=== PATIENT | female | born 1940 | race Caucasian/White ===

== ENCOUNTER → 2016-12-03 | Outpatient (CLI) | payer MEDICARE, BC ==
--- NOTE | 2016-12-03 15:56 | CT ---
EXAMINATION TYPE: CT abdomen pelvis wo con DATE OF EXAM: 12/03/2016 COMPARISON: NONE HISTORY: Patient complains of bilateral flank pain and microscopic hematuria. Patient has no prior h istory of renal stones. CT DLP: 1189.3 mGycm Automated exposure control for dose reduction was used. TECHNIQUE: Helical acquisition of images was performed from the lung bases through the pelvis. FINDINGS: LUNG BASES: Heart is enlarged. Cardiac leads are seen.. LIVER/GB: Liver and gallbladder limited by noncontrast technique. Gallbladder not well seen. PANCREAS: No significant abnormality is seen. SPLEEN: No significant abnormality is seen. ADRENALS: No significant abnormality is seen. KIDNEYS: No significant abnormality is seen. URINARY BLADDER: There is slight thickening at the level of the UVJ on axial image 131 and 132.. PELVIC ADENOPATHY: None visualized. OSSEOUS STRUCTURES: Hypertrophic and degenerative changes spine seen with grade 1 anterolisthesis L4 on L5. Previous surgery noted. Scoliosis noted. Arthropathy of the hips noted. BOWEL: Diverticulosis of the colon noted. Small hiatal hernia noted. OTHER: Aorta of normal caliber. IMPRESSION: NO EVIDENCE OF RENAL STONE OR HYDRONEPHROSIS. THERE IS SLIGHT INCREASED SOFT TISSUE DENSITY AT THE [facility] UVJ. THIS COULD BE CONSULTED WITH UROLOGY FOR ASSESSMENT OF THE DISTAL URETER, CORRELATE CLINICAL LY.
== END ==
LOC: RADCTMAIN 15:18
PROVIDERS: ATTEND Family Medicine
DX: N28.89 Other specified disorders of kidney and ureter (principal)
CPT/HCPCS: 74176

== ENCOUNTER → 2019-03-29 | Outpatient (CLI) | payer MEDICARE, BC ==
--- NOTE | 2019-03-30 07:26 | XR ---
EXAMINATION TYPE: XR chest 2V DATE OF EXAM: 03/29/2019 COMPARISON: None INDICATION: Left-sided lung pain TECHNIQUE: Frontal and lateral views of the chest are obtained. FINDINGS: The heart size is normal. The pulmonary vasculature is normal. The lungs are clear. Pacemaker overlies left chest. No pneumothorax is evident. IMPRESSION: 1. No acute pulmonary process.
== END | disposition home or self-care (01) ==
LOC: RADXRMAIN 15:46
PROVIDERS: ATTEND Physician Assistant
DX: J41.1 Mucopurulent chronic bronchitis (principal)
CPT/HCPCS: 71046

== ENCOUNTER → 2020-02-27 | Outpatient (CLI) | payer MEDICARE, BC | END | disposition home or self-care (01) | LOC: LABWHC1 12:08 | PROVIDERS: ATTEND Nurse Practitioner Family | DX: Z20.828 Contact with and (suspected) exposure to other viral communicable diseases (principal) | CPT/HCPCS: U0003; C9803 ==

== ENCOUNTER → 2020-03-19 | Outpatient (CLI) | payer MEDICARE, BC ==
[2020-03-19 10:52] VITALS: BP 154/83; PULSE 63; RESP 18; TEMP 98.9
--- NOTE | 2020-03-19 11:21 | P.PAINCN ---
History of Present Illness - Reason for Consult Consult date: 03/19/20 - History of Present Illness This is initial consultation visit for this 80 years old female with a chronic history of severe low back pain, started 5 years ago, patient reported that she had lumbar laminectomy and fusion surgery done in 2008 and she did fairly well until 5 years ago, she started having severe low back pain which is increased with any activity and the pain is radiated to the buttock area, and radiated to the posterior lateral aspect of the lower extremity bilaterally, the pain interfering with the quality of life, she is not able to ambulate on her own and she is using a walker to ambulate, she feel some weakness in her lower extremity bilaterally, she denies any fever or night sweats she denies any change in the bowel movement or urination. Past Medical History Past Medical History: Atrial Fibrillation, Eye Disorder, GERD/Reflux, Hypertension Additional Past Medical History / Comment(s): blind lt eye,thinks has sleep apnea,hiatal hernia,urinary infections, hx ventricular tachycardia,spinal stenosis,spondylosis,rt eye retinal tear-laser repair in office. History of Any Multi-Drug Resistant Organisms: None Reported Past Surgical History: Appendectomy, Back Surgery, Cardiac Ablation, Cholecystectomy, Heart Catheterization, Hysterectomy, Orthopedic Surgery, Pacemaker, Tonsillectomy Additional Past Surgical History / Comment(s): [employer] pacemaker,left arthroscopy,rt leg swelling drained,lower spine surgery laminectomy and fusion,lt eye x2,2 medial branch blocks in Jan & Feb 2020 Past Anesthesia/Blood Transfusion Reactions: No Reported Reaction Type of Cardiac Device: Permanent Pacemaker Device Placement Date:: 2011 Smoking Status: Never smoker - Past Family History Mother Family Medical History: Cancer Brother(s) Family Medical History: Cancer Sister(s) Family Medical History: Cancer Medications and Allergies Home Medications Medication Instructions Recorded Confirmed Type Meclizine [Antivert] 25 mg PO Q4HR PRN 03/21/14 03/19/20 History Metoprolol Tartrate [Lopressor] 50 mg PO BID 03/21/14 03/19/20 History Nitroglycerin Sl Tabs [Nitrostat] 0.4 mg SUBLINGUAL DIRECTED PRN 03/21/14 03/19/20 History Warfarin [Coumadin] 5 mg PO MOTUWETHFRSA 03/21/14 03/19/20 History Acetaminophen [Tylenol] 500 mg PO Q4-6H PRN 03/17/20 03/19/20 History Ascorbic Acid [Vitamin C] 1,000 mg PO DAILY 03/17/20 03/19/20 History Cetirizine HCl [Zyrtec] 10 mg PO DAILY 03/17/20 03/19/20 History Cholecalciferol [Vitamin D3 (25 5,000 unit PO DAILY 03/17/20 03/19/20 History Mcg = 1000 Iu)] Famotidine [Pepcid] 10 mg PO QID PRN 03/17/20 03/19/20 History Flecainide [Tambocor] 50 mg PO Q12HR 03/17/20 03/19/20 History Levothyroxine Sodium [Synthroid] 50 mcg PO DAILY 03/17/20 03/19/20 History Magnesium Unk Dose 1 tab PO DAILY 03/17/20 03/19/20 History Greenleaf-3 Fatty Acids [Greenleaf-3] 1,000 mg PO DAILY 03/17/20 03/19/20 History Potassium Gluconate 99 mg PO DAILY 03/17/20 03/19/20 History Progesterone, Micronized [Crinone] 1.125 gm VG HS 03/17/20 03/19/20 History Warfarin [Coumadin] 2.5 mg PO SPARKS 03/17/20 03/19/20 History Zinc Gluconate [Zinc] 30 mg PO DAILY 03/17/20 03/19/20 History Allergies Allergy/AdvReac Type Severity Reaction Status Date / Time acetaminophen [From Lortab] Allergy Severe Itching Verified 03/19/20 11:12 clonidine Allergy Severe extreme Verified 03/19/20 11:12 dizziness & faint doxycycline Allergy Severe Rash/Hives Verified 03/19/20 11:12 erythromycin base Allergy Severe nausea,diarrhea,vertigo,stomach Verified 03/19/20 11:12 problems hydrocodone bitartrate Allergy Severe Itching Verified 03/19/20 11:12 [From Lortab] indomethacin [From Indocin] Allergy Severe Hallucinati Verified 03/19/20 11:12 ons indomethacin sodium Allergy Severe Hallucinati Verified 03/19/20 11:12 [From Indocin] ons levofloxacin [From Levaquin] Allergy Severe Rash & Verified 03/19/20 11:12 joint pain morphine Allergy Severe Nausea & Verified 03/19/20 11:12 Vomiting naproxen [From Naprosyn] Allergy Severe Severe Verified 03/19/20 11:12 Headache sulindac [From Clinoril] Allergy Severe Nausea Verified 03/19/20 11:12 tolmetin sodium Allergy Severe Nausea Verified 03/19/20 11:12 [From Tolectin] bacitracin [From Cortisporin] Allergy Itching Verified 03/19/20 11:12 bacitracin zinc Allergy Itching Verified 03/19/20 11:12 [From Cortisporin] bupivacaine HCl Allergy joint pain Verified 03/19/20 11:12 [From Marcaine] cephalexin monohydrate Allergy Rash and Verified 03/19/20 11:12 [From Keflex] stomach problems ciprofloxacin Allergy Rash/Hives Verified 03/19/20 11:12 clarithromycin Allergy Diarrhea Verified 03/19/20 11:12 codeine Allergy Nausea Verified 03/19/20 11:12 dexamethasone Allergy Severe Verified 03/19/20 11:12 headache & drugged feeling dexamethasone sod phosphate Allergy Severe Verified 03/19/20 11:12 [From Decadron] headache & drugged feeling esomeprazole [From Nexium] Allergy Unknown Verified 03/19/20 11:12 estradiol Allergy Painful Verified 03/19/20 11:12 arms, spine & breasts hydrocortisone Allergy Itching Verified 03/19/20 11:12 [From Cortisporin] ibuprofen [From Motrin] Allergy Rapid Verified 03/19/20 11:12 Heart Rate liotrix [From Thyrolar-1/4] Allergy Rapid Verified 03/19/20 11:12 Heart Rate, sob,severe back pain lisinopril Allergy dizziness Verified 03/19/20 11:12 metoclopramide HCl Allergy Nausea-Stomach Verified 03/19/20 11:12 [From Reglan] problems neomycin [From Cortisporin] Allergy Itching Verified 03/19/20 11:12 neomycin sulfate Allergy Itching Verified 03/19/20 11:12 [From Cortisporin] omeprazole Allergy Swelling Verified 03/19/20 11:12 oxycodone HCl [From Percocet] Allergy sob,dizzy Verified 03/19/20 11:12 & drugged feeling polymyxin B Allergy Itching & Verified 03/19/20 11:12 swelling of the eyes polymyxin B sulfate Allergy Itching Verified 03/19/20 11:12 [From Cortisporin] pregabalin [From Lyrica] Allergy Weight Verified 03/19/20 11:12 gain & blurry vision propafenone Allergy Itching Verified 03/19/20 11:12 spironolactone Allergy Internal Verified 03/19/20 11:12 [From Aldactone] itching ,extreme dizziness sulfamethoxazole Allergy Severe Verified 03/19/20 11:12 [From Bactrim] joint pain tetracycline Allergy Pt told by Verified 03/19/20 11:12 Pharmacist never to take r/t other allergies tramadol HCl [From Ultram] Allergy Nausea & Verified 03/19/20 11:12 SOB trimethoprim [From Bactrim] Allergy Severe Verified 03/19/20 11:12 joint pain isosorbide AdvReac Severe severe Verified 03/19/20 11:12 headache,dizziness & diarrhea gabapentin [From Neurontin] AdvReac "off Verified 03/19/20 11:12 balance" Hexadrol Allergy Severe Uncoded 03/19/20 11:12 headache & drugged feeling shell fish Allergy Joint and Uncoded 03/19/20 11:12 body pain spectro-abel Allergy Frozen Uncoded 03/19/20 11:12 face for several days after Physical Exam Vitals: Vital Signs Temp Pulse Resp BP Pulse Ox 03/19/20 10:37 98.9 F 63 18 154/83 63 L Physical Examinations : -Constitutiona : Cooperative , not in acute distress . -HEENT : nech : supple , no Lymphadenopathy , normal thyroid size . : eyes : no ptosis , no icterus, no photophobia . - neurologic : Cranial nerve II to XII intact , no focal neurological deffecit . -psychatric : alert , oriented X 3 , appropriate affect , intact judgment and insight . -Lymphatic : no Lymphadenopathy . - musculoskeltal : Lumber spine moter stegnth lower extremities ,thigh and legs 5/5 Right side , 5/5 Left side deep tendon reflexes : normal Knee Jerk , normal ankle Jerk lumber facet Loading Test =positive Right , positive Left Range of motion of the lumbar spine Flexion 30 degrees, extension 10 degrees strait leg raising test = positive at 30 degree Fabere test= positive Right , and positive LT . Sever tenderness over the Sacroiliac joint on the Right , and Left sides Gaenslen test= positive right ,and positive left . Seated flexion test= positive right ,and positive Left . 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 2-lumbar spondylosis with lumbar facet arthropathy without myelopathy. 3-bilateral sacroiliitis. Patient could benefit from caudal epidural steroid injection with lysis of epidural adhesions under fluoroscopy guidance. If she continued to have pain after that then we will consider doing diagnostic medial branch block lumbar area. After holding Coumadin before the procedure well and we have to check PT/INR before the procedure, we will get approval from prescribing physician to hold Coumadin Time with Patient: Greater than 30 PQRS Measure Charge Sheet Measure #130: Documentation of Current Meds in Medical Chart: Patient's medications documented in chart Measure #226: Tobacco Use: Screen & Cessation Intervention: Pt not a tobacco user Measure #111: Pneumonia Vaccination: Pneumococcal vaccine administered or previously received Measure #47: Advance Care Plan: Advance care planning discussed & documented, pt chose/unable to give Measure #412: Opioid Treatment Agreement: No documentation of signed opioid treatment agreement Measure #408: Opioid Therapy Follow-up Evaluation: Patient had NO f/u eval minimum every 3 months during opioid therapy Measure #317: Preventitive Care & Scrn High Bld Press & F/U: Pre-hypertensive or hypertensive BP documented, pt will f/u with PCP Measure #128: Body Mass Index (BMI) Screening & Follow-up: BMI documented ABOVE normal parameters - f/u documented Measure #131: Pain Assessment & Follow-up: Pain positive & plan documented, Follow-up scheduled Measure #431: Unhealthy Alcohol Use Preventative Care & Scrn: Patient not identified as an unhealthy alcohol user PQRS Narrative: Blood Pressure 154/83 Pain Intensity [Back] 7 Scale Used Numeric (1 - 10) Hx Alcohol Use (MH) Yes Home Medications: Ambulatory Orders Meclizine [Antivert] 25 mg PO Q4HR PRN 03/21/14 Metoprolol Tartrate [Lopressor] 50 mg PO BID 03/21/14 Nitroglycerin Sl Tabs [Nitrostat] 0.4 mg SUBLINGUAL DIRECTED PRN 03/21/14 Warfarin [Coumadin] 5 mg PO MOTUWETHFRSA 03/21/14 Acetaminophen [Tylenol] 500 mg PO Q4-6H PRN 03/17/20 Ascorbic Acid [Vitamin C] 1,000 mg PO DAILY 03/17/20 Cetirizine HCl [Zyrtec] 10 mg PO DAILY 03/17/20 Cholecalciferol [Vitamin D3 (25 Mcg = 1000 Iu)] 5,000 unit PO DAILY 03/17/20 Famotidine [Pepcid] 10 mg PO QID PRN 03/17/20 Flecainide [Tambocor] 50 mg PO Q12HR 03/17/20 Levothyroxine Sodium [Synthroid] 50 mcg PO DAILY 03/17/20 Magnesium Unk Dose 1 tab PO DAILY 03/17/20 Greenleaf-3 Fatty Acids [Greenleaf-3] 1,000 mg PO DAILY 03/17/20 Potassium Gluconate 99 mg PO DAILY 03/17/20 Progesterone, Micronized [Crinone] 1.125 gm VG HS 03/17/20 Warfarin [Coumadin] 2.5 mg PO SPARKS 03/17/20 Zinc Gluconate [Zinc] 30 mg PO DAILY 03/17/20
== END | disposition home or self-care (01) ==
LOC: PNWHC3 10:24
PROVIDERS: ATTEND Specialist
DX: M96.1 Postlaminectomy syndrome, not elsewhere classified (principal); M47.816 Spondylosis without myelopathy or radiculopathy, lumbar region; M46.1 Sacroiliitis, not elsewhere classified; Z88.6 Allergy status to analgesic agent; Z88.1 Allergy status to other antibiotic agents; Z88.8 Allergy status to other drugs, medicaments and biological substances; Z91.013 Allergy to seafood; Z88.2 Allergy status to sulfonamides; Z88.5 Allergy status to narcotic agent; Z79.01 Long term (current) use of anticoagulants; Z79.899 Other long term (current) drug therapy; Z79.890 Hormone replacement therapy
CPT/HCPCS: 99211

== ENCOUNTER → 2020-04-18 | Day surgery (SDC) | payer MEDICARE, BC ==
[2020-04-14 15:40] VITALS: BMI 35.3
[~2020-04-18] MED LIST: IOPAMIDOL M200 10 ML VIAL ONE; IV FLUID CONTINUATION 800 ML IV ONE; LACTATED RINGERS 1,000 ML IV ONE; LACTATED RINGERS 1,000 ML IV SCH; LIDOCAINE 1% (10MG/ML) FOR IV START INTRADERMA ONE; MIDAZOLAM 2 MG/2 ML VIAL ONE; ROPIVACAINE 5MG/ML 20ML VIAL ONE; TRIAMCINOLONE ACETONIDE 40 MG/ML 1 ML VIAL ONE; fentaNYL (PF) 50 MCG/ML 2 ML AMP ONE
[2020-04-18 06:28] VITALS: TEMP 96.2
[2020-04-18 07:00] LABS: INR 1.2 (<1.2)
--- NOTE | 2020-04-18 07:34 | P.PCN ---
Date of Procedure: 04/18/20 Surgeon: Rosi Sanches Pathology: none sent Condition: stable Disposition: PACU Description of Procedure: PREOP DIAGNOSIS: Lumbar postlaminectomy syndrome. POSTOP DIAGNOSIS: Lumbar postlaminectomy syndrome. PROCEDURE: Caudal epidural steroid injection with epidurolysis and epidurogram under fluoroscopic guidance ANESTHESIA: Local with 1% lidocaine; IV moderate conscious sedation by the anesthesia services EBL: Minimal. The patient is on Coumadin and her INR this morning is 1.2 PROCEDURE INDICATION: The patient with post-laminectomy syndrome with low back pain and radiculopathy radiating down in both legs, here for a caudal epidural steroid injection with epidurolysis. PROCEDURE DESCRIPTION: The patient was seen in the preoperative holding area consent was obtained then he was brought into the procedure room and placed in prone position. Skin was prepped with ChloraPrep and draped in a sterile manner. Lidocaine 1% was used to numb the skin up at the target point that was chosen as follows: The lateral view of fluoroscopy was used to identify the sacral hiatus and then after localizing the skin with lidocaine 1% I used 18- gauge epidural needle with a plastic sheath to go through the sacral hiatus and into the sacral canal and then injected 1 mL of Omnipaque for verification of needle tip position. After that the metal core of the needle was taken out and the plastic sheath was kept in the sacral canal. Then Racz catheter was introduced through the plastic sheath and into the epidural space at the sacral canal using the AP view of fluoroscopy up to L5-S1 level then I injected 2 MLS of Omnipaque which showed spread in the epidural space and after few back and forth movements of the Racz catheter I injected 40 mg of Kenalog +2 MLS of Ropivacaine 0.5% +5 MLS of preservative-free normal saline to a total volume of 8 MLS in the epidural space. Patient tolerated procedure well. The patient can resume her Coumadin tonight. A copy of the needle placement x-ray was saved to the C-arm machine. COMPLICATIONS: None. DISPOSITION / PLANS: The patient was placed in a supine position and transferred to the recovery area in a stable condition for observation and was discharged from the recovery room after meeting discharge criteria. Home discharge instructions given to the patient by the staff. The patient was reexamined prior to discharge. The patient will schedule a follow up in the clinic in 2-4 weeks.
[2020-04-18 08:17] VITALS: BP 139/81; PULSE 78; RESP 17
--- NOTE | 2020-04-18 08:27 | FL ---
Fluoroscopy INDICATION: Pain FINDINGS: Fluoroscopy time: 9 seconds. Images obtained: 3. IMPRESSIONS: 1. Documentation of fluoroscopy.
== END ==
LOC: ORPAIN 06:09
PROVIDERS: ATTEND Anesthesiology
DX: M96.1 Postlaminectomy syndrome, not elsewhere classified (principal); M54.16 Radiculopathy, lumbar region; M79.7 Fibromyalgia; I10 Essential (primary) hypertension; I48.91 Unspecified atrial fibrillation; E07.9 Disorder of thyroid, unspecified; K21.9 Gastro-esophageal reflux disease without esophagitis; Z95.0 Presence of cardiac pacemaker; Z79.890 Hormone replacement therapy; Z79.01 Long term (current) use of anticoagulants; Z79.899 Other long term (current) drug therapy; Z78.0 Asymptomatic menopausal state
CPT/HCPCS: 85610; 62264; J2250; J3301; J3010; Q9966; J2795; C1894

== ENCOUNTER 2020-05-09 06:52 | Day surgery (SDC) | payer MEDICARE, BC ==
[2020-05-07 15:21] VITALS: BMI 36.2
[~2020-05-09 06:52] MED LIST changes: -IOPAMIDOL M200 10 ML VIAL ONE; -IV FLUID CONTINUATION 800 ML IV ONE; -LACTATED RINGERS 1,000 ML IV ONE; -LIDOCAINE 1% (10MG/ML) FOR IV START INTRADERMA ONE; -MIDAZOLAM 2 MG/2 ML VIAL ONE; -ROPIVACAINE 5MG/ML 20ML VIAL ONE; -TRIAMCINOLONE ACETONIDE 40 MG/ML 1 ML VIAL ONE; -fentaNYL (PF) 50 MCG/ML 2 ML AMP ONE
[2020-05-09 07:28] VITALS: RESP 16; TEMP 96.9
[2020-05-09 07:46] LABS: INR 1.1 (<1.2); Prothrombin Time 11.9 sec (9.0-12.0)
[2020-05-09] MEDS ORDERED: SODIUM CHLORIDE 0.9% 20 ML VIAL ONE (07:55)
[2020-05-09] MEDS ORDERED: methylPREDNISolone ACETATE 40 MG/ML 1 ML VIAL ONE (07:55)
[2020-05-09] MEDS ORDERED: fentaNYL (PF) 50 MCG/ML 2 ML AMP ONE (07:55)
[2020-05-09] MEDS ORDERED: IOPAMIDOL M200 10 ML VIAL ONE (07:55)
[2020-05-09] MEDS ORDERED: MIDAZOLAM 2 MG/2 ML VIAL ONE (07:55)
--- NOTE | 2020-05-09 08:13 | P.PCN ---
Date of Procedure: 05/09/20 Procedure(s) Performed: PREOP DIAGNOSIS: 1- Lumbar postlaminectomy syndrome. POSTOP DIAGNOSIS:1- Lumbar postlaminectomy syndrome. PROCEDURE: 1-Caudal epidural steroid injection with epidurolysis and epidurogram under fluoroscopic guidance. (Fluoroscopy images available in the radiology Department ) 2-caudal epidurogram. ANESTHESIA: Local with 1% lidocaine 3 ml ,and moderate sedation, with Versed 2 mg and fentanyl 50 g. EBL: Minimal. PROCEDURE INDICATION: The patient with post-laminectomy syndrome with low back pain and radiculopathy radiating down in both legs, here for a caudal epidural steroid injection with epidurolysis. PROCEDURE DESCRIPTION: The patient was seen and identified in the preoperative area. Risks, benefits, complications, and alternatives were discussed with the patient. The patient agreed to proceed with the procedure and signed the consent. IV was started, and vital signs were stable. Patient was taken to the OR and time out was completed. The patient was placed in the prone position on procedure table and a pillow was placed under the abdomen to reduce lumbar lordosis. The lumbosacral area was prepped and draped in the usual sterile fashion. Vital signs were closely monitored during the procedure. lateral view and the anterior-posterior plates of the sacrum were identified with infiltration of the area overlying the sacral hiatus with 1% lidocaine .A 17 gauge RK epidural needle was used to advance through the sacral hiatus into the caudal epidural space. Omnipaque 180 dye. 2cc was injected and the position of the needle was verified to be in the midline. A Racz catheter was introduced into the epidural space and was advanced towards the L5-S1 interspace under direct fluoroscopic guidance. Multiple passes were made with the catheter for lysis of epidural adhesions. Depo-Medrol 40 mg with 3ml of preservative free Lidocaine 1% and 5 ml of preservative free normal saline was injected slowly. Additional spread was seen to L4 under fluoroscopy. The needle and the catheter were withdrawn intact. EPIDUROGRAM: Omnipaque 180 mg dye 2 ml was injected with spread of the dye into the caudal epidural space and with spread cutoff at L5 prior to epidurolysis. Post epidurolysis dye 2 ml was injected and spread was seen to L4.There was further spread of the solution together with the dye above the L4 COMPLICATIONS: None. DISPOSITION / PLANS: The patient was placed in a supine position and transferred to the recovery area in a stable condition for observation and was discharged from the recovery room after meeting discharge criteria. Home discharge instructions given to the patient by the staff. The patient was reexamined prior to discharge. The patient will schedule a follow up in the clinic in 2-4 weeks. note = patient had a fusion at L4-5 Level
[2020-05-09] MEDS ORDERED: IV FLUID CONTINUATION 1,000 ML IV ONE ×2 (08:18)
--- NOTE | 2020-05-09 08:25 | FL ---
Fluoroscopy History: Caudal Inj 21sec fluoro time,4 images scanned
[2020-05-09 08:30] VITALS: PULSE 60
[2020-05-09 08:35] VITALS: BP 132/60
== END 2020-05-09 08:51 | disposition home or self-care (01) ==
LOC: ORPAIN 06:52
PROVIDERS: ATTEND Specialist
DX: M96.1 Postlaminectomy syndrome, not elsewhere classified (principal); Z79.01 Long term (current) use of anticoagulants; Z78.0 Asymptomatic menopausal state
CPT/HCPCS: 85610; 62264; J2250; J1030; J3010; Q9966; C1894; 99152

== ENCOUNTER → 2020-05-26 | Outpatient (CLI) | payer MEDICARE, BC ==
[2020-05-26 11:24] VITALS: BP 163/89; PULSE 61; RESP 18; TEMP 98.2
--- NOTE | 2020-05-26 11:50 | P.PN ---
Subjective Progress Note Date: 05/26/20 This is a follow-up visit for this 80 years old female with a chronic history of severe low back pain with radiation to the procedure aspect of her lower extremity bilaterally, she is diagnosed with failed back surgery syndrome and lumbar area and lumbar spondylosis with lumbar facet arthropathy and bilateral sacroiliitis, previously we had done a caudal epidural steroid injection with lysis of epidural adhesions 2, she had some benefit from it but she continued to have severe low back pain, the pain is constant and increases with any activity interferes with the quality of life and activity of daily livings, she had minimal weakness in her right lower extremity she denies any fever or night sweats but she denies any change in the bowel movement or urination Objective - Vital Signs Vital signs: Vital Signs Temp 98.2 F 05/26/20 11:17 Pulse 61 05/26/20 11:17 Resp 18 05/26/20 11:17 BP 163/89 05/26/20 11:17 Pulse Ox 97 05/26/20 11:17 - Exam Physical Examinations : -Constitutiona : Cooperative , not in acute distress . -HEENT : nech : supple , no Lymphadenopathy , normal thyroid size . : eyes : no ptosis , no icterus, no photophobia . - neurologic : Cranial nerve II to XII intact , no focal neurological deffecit . -psychatric : alert , oriented X 3 , appropriate affect , intact judgment and insight . -Lymphatic : no Lymphadenopathy . - musculoskeltal : Lumber spine moter stegnth lower extremities ,thigh and legs 5/5 Right side , 5/5 Left side deep tendon reflexes : normal Knee Jerk , normal ankle Jerk lumber facet Loading Test =positive Right , positive Left Range of motion of the lumbar spine Flexion 30 degrees, extension 10 degrees strait leg raising test = positive at 30 degree Fabere test= positive Right , and positive LT . Sever tenderness over the Sacroiliac joint on the Right , and Left sides Gaenslen test= positive right ,and positive left . Seated flexion test= positive right ,and positive Left . 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 2-lumbar spondylosis with lumbar facet arthropathy without myelopathy. 3-bilateral sacroiliitis. Patient continued to have severe low back pain after caudal epidural steroid injection with lysis of epidural adhesions We will schedule her to have diagnostic medial bra nch block lumbar area at L3, L4, L5 (to target the L4 5 and L5-S1 facet joint ). We have to hold Coumadin if we have to proceed with RFA PQRS Measure Charge Sheet Measure #130: Documentation of Current Meds in Medical Chart: Patient's medications documented in chart Measure #226: Tobacco Use: Screen & Cessation Intervention: Pt not a tobacco user Measure #111: Pneumonia Vaccination: Pneumococcal vaccine administered or previously received Measure #47: Advance Care Plan: Advance care planning discussed & documented, pt chose/unable to give Measure #412: Opioid Treatment Agreement: No documentation of signed opioid treatment agreement Measure #408: Opioid Therapy Follow-up Evaluation: Patient had NO f/u eval minimum every 3 months during opioid therapy Measure #317: Preventitive Care & Scrn High Bld Press & F/U: Pre-hypertensive or hypertensive BP documented, pt will f/u with PCP Measure #128: Body Mass Index (BMI) Screening & Follow-up: BMI documented ABOVE normal parameters - f/u documented Measure #131: Pain Assessment & Follow-up: Pain positive & plan documented, Follow-up scheduled Measure #431: Unhealthy Alcohol Use Preventative Care & Scrn: Patient not identified as an unhealthy alcohol user PQRS Narrative: Time with Patient: Less than 30
== END | disposition home or self-care (01) ==
LOC: PNWHC3 11:04
PROVIDERS: ATTEND Specialist
DX: M46.1 Sacroiliitis, not elsewhere classified (principal); M47.816 Spondylosis without myelopathy or radiculopathy, lumbar region; M96.1 Postlaminectomy syndrome, not elsewhere classified
CPT/HCPCS: 99211

== ENCOUNTER 2020-06-13 06:38 | Day surgery (SDC) | payer MEDICARE, BC ==
[2020-06-09 13:26] VITALS: BMI 35.9
[2020-06-13 07:15] VITALS: RESP 16; TEMP 97.1
[2020-06-13] MEDS ORDERED: LIDOCAINE 1% (10MG/ML) FOR IV START INTRADERMA ONE (07:15)
[2020-06-13 07:22] LABS: Prothrombin Time 29.3 sec (9.0-12.0)
[2020-06-13] MEDS ORDERED: fentaNYL (PF) 50 MCG/ML 2 ML AMP ONE (07:48)
[2020-06-13] MEDS ORDERED: ROPIVACAINE 5MG/ML 20ML VIAL ONE (07:48)
[2020-06-13] MEDS ORDERED: methylPREDNISolone ACETATE 40 MG/ML 1 ML VIAL ONE (07:48)
[2020-06-13] MEDS ORDERED: MIDAZOLAM 2 MG/2 ML VIAL ONE (07:48)
--- NOTE | 2020-06-13 08:16 | P.PCN ---
Date of Procedure: 06/13/20 Procedure(s) Performed: PREOPERATIVE DIAGNOSIS : 1- Lumbar spondylosis with Facet Arthropathy without myelopathy . 2-postlaminectomy pain syndrome lumbar area POSTOPERATIVE DIAGNOSIS: 1- Lumbar spondylosis with Facet Arthropathy without myelopathy . 2- postlaminectomy pain syndrome lumbar area PROCEDURE: Diagnostic bilateral L2 , L3 , and L5 medial branch block under fluoroscopy guidance(fluoroscopy images available in the radiology Department ) (Patient had a fusion at L4- 5 level, and the block was done above and below the fusion area ) ANESTHESIA:, Monitored anesthesia care as per anesthesia department EBL: Minimal COMPLICATION: None PROCEDURE INDICATION: Chronic low back pain secondary to Facet arthropathy unresponsive to conservative treatment. PROCEDURE DESCRIPTION: the patient was seen and identified in the preop holding area , risks and benefits and possible complications of the procedure and alternative were discussed with the patient, and the patient agreed to proceed with the procedure and signed the consent and vital signs monitored during the procedure and fluoroscopy was used to maximize the benefit and accuracy of the needle placement, and sedation was given to decrease patient anxiety, patient was taken to the procedure room and placed in prone position vital signs monitored in the back prepped with chlorhexidine X3 then under strict sterile technique using a right oblique fluoroscopy ,the junction of the transverse process and the superior articulating process of the right L2 , L3 , and L5 vertebra which corresponding to the fluoroscopy image of the eye of the Gwyn dog on the block side for the medial branches and subsequently , after local infiltration of skin and subcu tissuies with Ropivacaine 0.5 % , one mL at each level ,then 22-gauge 5 inches long Quincke-type needles , 3 needle was used , each one of them placed at the junction of the base of the transverse process and the superior articular process at the appropriate level, and the needle was advanced until the periosteum contacted, needle placement confirmed with AP oblique and lateral view and after appropriate needle placement confirmed, and after negative aspiration for heme and CSF and there was no paresthesia 1-1/2 mL of Ropivacaine 0.5% mixed with 20 mg Depo-Medrol , then half mL injected at each level after negative aspiration the needle subsequently removed and the same procedure repeated for the left side at left side at L2 , L3 and L5 levels. At the end of the procedure and the needles removed and a bandage applied after the skin was cleaned the cleaning solution patient taken to recovery room in stable condition and monitors in the recovery room for 20-30 minutes and discharged home in stable condition after discharge criteria met and patient will follow up with the pain clinic in 2-4 weeks
[2020-06-13 08:32] VITALS: BP 173/78; PULSE 60
[2020-06-13] MEDS ORDERED: ONDANSETRON 4 MG/2 ML VIAL ONE (08:40)
[2020-06-13] MEDS ORDERED: ONDANSETRON 4 MG/2 ML VIAL IVP ONE (08:41)
[2020-06-13] MEDS ORDERED: IV FLUID CONTINUATION 1,000 ML IV ONE (09:08)
--- NOTE | 2020-06-13 09:24 | FL ---
Fluoroscopy INDICATION: Pain FINDINGS: Fluoroscopy time: 30 seconds. Images obtained: 5. IMPRESSIONS: 1. Documentation of fluoroscopy.
== END 2020-06-13 09:20 | disposition home or self-care (01) ==
LOC: ORPAIN 06:38
PROVIDERS: ATTEND Specialist
DX: M47.816 Spondylosis without myelopathy or radiculopathy, lumbar region (principal); M96.1 Postlaminectomy syndrome, not elsewhere classified; M79.7 Fibromyalgia; I48.91 Unspecified atrial fibrillation; I25.10 Atherosclerotic heart disease of native coronary artery without angina pectoris; I10 Essential (primary) hypertension; E78.5 Hyperlipidemia, unspecified; Z79.01 Long term (current) use of anticoagulants; Z79.890 Hormone replacement therapy; Z79.899 Other long term (current) drug therapy; Z95.0 Presence of cardiac pacemaker; Z88.1 Allergy status to other antibiotic agents; Z88.5 Allergy status to narcotic agent; Z88.2 Allergy status to sulfonamides; Z88.8 Allergy status to other drugs, medicaments and biological substances
CPT/HCPCS: 85610; 64493; 64494; 64495; J2250; J1030; J2405; J3010; J2795

== ENCOUNTER 2020-07-11 06:49 | Day surgery (SDC) | payer MEDICARE, BC ==
[2020-07-08 09:55] VITALS: BMI 35.9
[2020-07-11] MEDS ORDERED: LACTATED RINGERS 1,000 ML IV ONE ×3 (07:10)
[2020-07-11 07:15] VITALS: RESP 16; TEMP 97
[2020-07-11] MEDS ORDERED: ONDANSETRON 4 MG/2 ML VIAL ONE (07:29)
[2020-07-11] MEDS ORDERED: ONDANSETRON 4 MG/2 ML VIAL IVP ONE (07:30)
[2020-07-11] MEDS ORDERED: fentaNYL (PF) 50 MCG/ML 2 ML AMP ONE (07:56)
[2020-07-11] MEDS ORDERED: methylPREDNISolone ACETATE 40 MG/ML 1 ML VIAL ONE (07:56)
[2020-07-11] MEDS ORDERED: MIDAZOLAM 2 MG/2 ML VIAL ONE (07:56)
[2020-07-11] MEDS ORDERED: ROPIVACAINE 5MG/ML 20ML VIAL ONE (07:56)
--- NOTE | 2020-07-11 08:19 | P.PCN ---
Date of Procedure: 07/11/20 Description of Procedure: PREOPERATIVE DIAGNOSIS : 1- Lumbar spondylosis with Facet Arthropathy without myelopathy . 2-postlaminectomy pain syndrome lumbar area POSTOPERATIVE DIAGNOSIS: 1- Lumbar spondylosis with Facet Arthropathy without myelopathy . 2- postlaminectomy pain syndrome lumbar area PROCEDURE: Diagnostic bilateral L2 , L3 , and L5 medial branch block under fluoroscopy guidance(fluoroscopy images available in the radiology Department ) (Patient had a fusion at L4- 5 level, and the block was done above and below the fusion area ) ANESTHESIA:, Monitored anesthesia care as per anesthesia department EBL: Minimal COMPLICATION: None PROCEDURE INDICATION: Chronic low back pain secondary to Facet arthropathy unresponsive to conservative treatment, she had bilateral Lumbar medial branch block at same levels 2 weeks ago with 100% relief for 2 weeks. PROCEDURE DESCRIPTION: The patient was seen and identified in the preop holding area , risks and benefits and possible complications of the procedure and alternative were discussed with the patient, and the patient agreed to proceed with the procedure and signed the consent and vital signs monitored during the procedure and fluoroscopy was used to maximize the benefit and accuracy of the needle placement, and sedation was given to decrease patient anxiety, patient was taken to the procedure room and placed in prone position vital signs monitored in the back prepped with chlorhexidine X3 then under strict sterile technique using a right oblique fluoroscopy ,the junction of the transverse process and the superior articulating process of the right L2 , L3 , and L5 vertebra which corresponding to the fluoroscopy image of the eye of the Gwyn dog on the block side for the medial branches and subsequently , after local infiltration of skin and subcu tissuies with Ropivacaine 0.5 % , one mL at each level ,then 22- gauge 5 inches long Quincke-type needles , 3 needle was used , each one of them placed at the junction of the base of the transverse process and the superior articular process at the appropriate level, and the needle was advanced until the periosteum contacted, needle placement confirmed with AP oblique and lateral view and after appropriate needle placement confirmed, and after negative aspiration for heme and CSF and there was no paresthesia 1-1/2 mL of Ropivacaine 0.5% mixed with 20 mg Depo-Medrol , then half mL injected at each level after negative aspiration the needle subsequently removed and the same procedure repeated for the left side at left side at L2 , L3 and L5 levels. At the end of the procedure and the needles removed and a bandage applied after the skin was cleaned the cleaning solution patient taken to recovery room in stable condition and monitors in the recovery room for 20-30 minutes and discharged home in stable condition after discharge criteria met and patient will follow up with the pain clinic in 2-4 weeks
[2020-07-11] MEDS ORDERED: IV FLUID CONTINUATION 1,000 ML IV ONE ×2 (08:21)
[2020-07-11 09:06] VITALS: BP 130/61; PULSE 60
--- NOTE | 2020-07-11 12:03 | FL ---
EXAMINATION TYPE: FL guided pain mgmt statistic DATE OF EXAM: 07/11/2020 FLUOROSCOPY Fluoroscopy time of 1 minute 40 seconds seconds was used during lumbar spine pain intervention proced ure. 4 image/s document/s the procedure.
== END 2020-07-11 09:05 | disposition home or self-care (01) ==
LOC: ORPAIN 06:49
PROVIDERS: ATTEND Anesthesiology
DX: G89.29 Other chronic pain (principal); M47.816 Spondylosis without myelopathy or radiculopathy, lumbar region; M96.1 Postlaminectomy syndrome, not elsewhere classified; I48.91 Unspecified atrial fibrillation; Z95.0 Presence of cardiac pacemaker; I12.9 Hypertensive chronic kidney disease with stage 1 through stage 4 chronic kidney disease, or unspecified chronic kidney disease; N18.9 Chronic kidney disease, unspecified; M19.90 Unspecified osteoarthritis, unspecified site; K21.9 Gastro-esophageal reflux disease without esophagitis; Z88.6 Allergy status to analgesic agent; Z88.1 Allergy status to other antibiotic agents; Z88.5 Allergy status to narcotic agent; Z88.8 Allergy status to other drugs, medicaments and biological substances
CPT/HCPCS: 64493; 64494; J2250; J1030; J2405; J3010; J2795

== ENCOUNTER → 2020-08-05 | Outpatient (CLI) | payer MEDICARE, BC ==
--- NOTE | 2020-08-05 12:07 | XR ---
EXAMINATION TYPE: XR abdomen 2V DATE OF EXAM: 08/05/2020 CLINICAL HISTORY: Constipation for 2 weeks TECHNIQUE: Supine and upright views of the abdomen are obtained. COMPARISON: CT abdomen and pelvis December 03, 2016. FINDINGS: Scattered gas is seen in non-distended small bowel loops. Gas and fecal material is seen in non-distended colon. Lung bases are clear. Cardiomegaly with dual lead pacemaker. Underlying levoc onvex scoliosis. Postsurgical changes lower lumbar spine. No free air. Scattered bilateral pelvic phl eboliths. Moderate axial joint space loss both hips. Overlying arterial vascular calcification. IMPRESSION: Overall nonobstructive bowel gas pattern redemonstrated.
== END | disposition home or self-care (01) ==
LOC: RADXRMAIN 11:23
PROVIDERS: ATTEND Nurse Practitioner
DX: K59.00 Constipation, unspecified (principal)
CPT/HCPCS: 74019

== ENCOUNTER → 2020-08-06 | Outpatient (CLI) | payer MEDICARE, BC ==
[2020-08-06 11:24] VITALS: BP 141/83; PULSE 62; RESP 16; TEMP 98.1
--- NOTE | 2020-08-06 11:51 | P.PN ---
Subjective Progress Note Date: 08/06/20 This is a follow-up visit for this 80 years old female with a chronic history of severe low back pain with radiation to the lower extremity bilaterally, she is diagnosed with failed back surgery syndrome lumbar area ,and lumbar spondylosis with lumbar facet arthropathy, and bilateral sacroiliitis, previously we had done a caudal epidural steroid injection with lysis of epidural adhesions 2, recently we did diagnostic medial branch block lumbar area at L2 L3 ,L5 bilaterally and she had 80% improvement of her pain after each block, the pain relief was for short-term , she had severe low back pain, the pain is constant and increases with any activity interferes with the quality of life and activity of daily livings, she had minimal weakness in her right lower extremity she denies any fever or night sweats but she denies any change in the bowel movement or urination Physical Examinations : -Constitutiona : Cooperative , not in acute distress . -HEENT : nech : supple , no Lymphadenopathy , normal thyroid size . : eyes : no ptosis , no icterus, no photophobia . - neurologic : Cranial nerve II to XII intact , no focal neurological deffecit . -psychatric : alert , oriented X 3 , appropriate affect , intact judgment and insight . -Lymphatic : no Lymphadenopathy . - musculoskeltal : Lumber spine moter stegnth lower extremities ,thigh and legs 5/5 Right side , 5/5 Left side deep tendon reflexes : normal Knee Jerk , normal ankle Jerk lumber facet Loading Test =positive Right , positive Left Range of motion of the lumbar spine Flexion 30 degrees, extension 10 degrees strait leg raising test = positive at 30 degree Fabere test= positive Right , and positive LT . Sever tenderness over the Sacroiliac joint on the Right , and Left sides Gaenslen test= positive right ,and positive left . Seated flexion test= positive right ,and positive Left . Results MRI of the lumbar spine L2-3 bulging disc disease and facet arthropathy L3 4 bulging disc disease with facet arthropathy L4 5 bulging disc disease with facet arthropathy L5-S1 bulging disc disease and facet joint arthropathy Assessment and plan= 1-failed back surgery syndrome and lumbar area. 2-lumbar spondylosis with lumbar facet arthropathy without myelopathy. 3-bilateral sacroiliitis. 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 -Tobacco use is negative and counseling.Given. -Patient's has not received pneumococcal vaccine. -Advanced care planning discussed, patient not eligible. -Opiate contract not signed. -Pain positive and follow-up visit/procedure is scheduled. -Patient's blood pressure measured [141/83 ] , and documented in the record ,and patient will follow up with the primary care. -Patient's weight was measured and body mass index [ 35.9 ] above the,normal limits and counseling was done. and patient instructed to follow-up with the primary care physician. -Patient was not identified as an unhealthy alcohol user Objective - Vital Signs Vital signs: Vital Signs Temp 98.1 F 08/06/20 11:21 Pulse 62 08/06/20 11:21 Resp 16 08/06/20 11:21 BP 141/83 08/06/20 11:21 Pulse Ox 98 08/06/20 11:21
== END ==
LOC: PNWHC3 11:08
PROVIDERS: ATTEND Specialist
DX: M96.1 Postlaminectomy syndrome, not elsewhere classified (principal); M47.816 Spondylosis without myelopathy or radiculopathy, lumbar region; M46.1 Sacroiliitis, not elsewhere classified
CPT/HCPCS: 99211

== ENCOUNTER 2020-09-05 07:50 | Day surgery (SDC) | payer MEDICARE, BC ==
[2020-09-03 15:42] VITALS: BMI 35.9
[2020-09-05] MEDS ORDERED: LACTATED RINGERS 1,000 ML IV SCH (08:19)
[2020-09-05] MEDS ORDERED: LIDOCAINE 1% (10MG/ML) FOR IV START INTRADERMA ONE (08:44)
[2020-09-05 08:47] VITALS: TEMP 97.9
[2020-09-05] MEDS ORDERED: ONDANSETRON 4 MG/2 ML VIAL ONE (08:50)
[2020-09-05] MEDS ORDERED: ONDANSETRON 4 MG/2 ML VIAL IVP ONE (08:54)
[2020-09-05 08:58] LABS: INR 1.1 (<1.2); Prothrombin Time 11.8 sec (9.0-12.0)
[2020-09-05] MEDS ORDERED: methylPREDNISolone ACETATE 40 MG/ML 1 ML VIAL ONE (08:59)
[2020-09-05] MEDS ORDERED: MIDAZOLAM 2 MG/2 ML VIAL ONE (08:59)
[2020-09-05] MEDS ORDERED: ROPIVACAINE 5MG/ML 20ML VIAL ONE (08:59)
[2020-09-05] MEDS ORDERED: fentaNYL (PF) 50 MCG/ML 2 ML AMP ONE ×2 (08:59→10:38)
--- NOTE | 2020-09-05 09:40 | P.PCN ---
Date of Procedure: 09/05/20 Procedure(s) Performed: PREOPERATIVE DIAGNOSIS: 1-Lumbar Spondylosis with Facet Arthropathy without myelopathy. POSTOPERATIVE DIAGNOSIS: 1- Lumbar Spondylosis with Facet Arthropathy without myelopathy. PROCEDURES : Bilateral Radiofrequency thermocoagulation L2 ,, L3 ,and L5 medial branch, with fluoroscopic guidance (fluoroscopy images available in the radiology department) ( Patient had fusion at L4 5, and the radiofrequency was done above and below the fusion ) ANESTHESIA: Monitored anesthesia care as per anesthesia department. EBL: Minimal PROCEDURE INDICATION: The patient with low back pain secondary to lumbar facet arthropathy who had more than 50% relief of her pain with previous diagnostic lumbar medial branch block with bupivacaine. PROCEDURE DESCRIPTION / TECHNIQUE: The patient was seen and identified in the preoperative area. Risks, benefits, complications, including but not limited to risk of infection ,bleeding , allergic reactions to the medications and no complete pain releife , and alternatives were discussed with the patient, the patient agreed to proceed with the procedure and signed the consent. IV was started. Vital signs remained stable throughout the procedure. Patient was taken to the OR and time out was completed. The patient was placed in the prone position on the procedure table. The lumber area was prepped and draped in the usual sterile fashion. . Vital signs were closely monitored during the procedure .IV sedation was used during the procedure to decrease patients anxiety. Using AP and then oblique fluoroscopy, the ``eye of the Gwyn dog corresponding to the connection between the superior and transverse articular processes of right L2, L3, and L5 were identified, marked, and localized with 1% lidocaine. Subsequently, a [id number] ( VENUM ) radiofrequency cannula with a 10-mm active tip was advanced guided by fluoroscopy to each of the``eyes of the Gwyn dog at right L2 , L3,and L5. Each site then underwent sensory testing at 50 Hz and 0 to 1 volt and motor testing at 2.5 Hz and 0 to 3 volt with local stimulation, but no radicular symptoms down the legs. Thereafter each sites underwent radiofrequency thermocoagulation at 80 degrees celsius for 90 seconds after injecting 0.5 ml of PF Ropivacaine 1ml, then after the thermocoagulation done , 1 ml of the block solution containing Depo-Medrol 20 mg and 3 ml of Ropivacaine 0.5% was injected at the right L2 , L3 ,and L5 , levels after negative aspiration of CSF and blood and with no paresthesias. Cannulas were retracted while injecting lidocaine 1% until the needle is out. The same procedure was repeated at the level of Left L2 ,L3, and L5 levels. At the end of the procedure, the skin was cleansed and bandages were applied. COMPLICATIONS: No acute complications. DISPOSITION / PLANS: The patient was placed in a supine position and transferred to the recovery area in a stable condition for observation and was discharged from the recovery room after meeting discharge criteria. Home discharge instructions given to the patient by the staff. The patient was reexamined prior to discharge. The patient will schedule a follow up in the clinic in 2-4 weeks.
[2020-09-05] MEDS ORDERED: IV FLUID CONTINUATION 375 ML IV ONE (09:43)
[2020-09-05 10:03] VITALS: RESP 16
[2020-09-05] MEDS ORDERED: KETOROLAC 15 MG/ML 1 ML VIAL ONE (10:24)
[2020-09-05] MEDS ORDERED: fentaNYL (PF) 50 MCG/ML 2 ML AMP IVP ONE (10:40)
[2020-09-05 11:18] VITALS: BP 124/76; PULSE 60
--- NOTE | 2020-09-05 11:34 | FL ---
Fluoroscopy HISTORY: Pain 24 seconds fluoroscopy time supplied to the referring clinician. 11 intraoperative C-arm images docu ment the procedure. See dictated report from anesthesia.
== END 2020-09-05 11:26 | disposition home or self-care (01) ==
LOC: ORPAIN 07:50
PROVIDERS: ATTEND Specialist
DX: M47.816 Spondylosis without myelopathy or radiculopathy, lumbar region (principal); Z88.1 Allergy status to other antibiotic agents; Z88.8 Allergy status to other drugs, medicaments and biological substances; Z79.01 Long term (current) use of anticoagulants; I48.91 Unspecified atrial fibrillation; Z95.0 Presence of cardiac pacemaker; Z98.1 Arthrodesis status; I10 Essential (primary) hypertension; E07.9 Disorder of thyroid, unspecified; M79.7 Fibromyalgia; K21.9 Gastro-esophageal reflux disease without esophagitis; Z79.890 Hormone replacement therapy; Z79.899 Other long term (current) drug therapy
CPT/HCPCS: 85610; 64635; 64636; J2250; J1030; J2405; J3010; J2795

== ENCOUNTER → 2020-10-01 | Outpatient (CLI) | payer MEDICARE, BC ==
[2020-10-01 11:24] VITALS: BP 157/71; PULSE 61; RESP 18; TEMP 98.6
--- NOTE | 2020-10-01 11:50 | P.PAINPG ---
Subjective Progress Note Date: 10/01/20 This is a follow-up visit for this 80 years old female with a chronic history of severe low back pain with radiation to the lower extremity bilaterally, she is diagnosed with failed back surgery syndrome lumbar area ,and lumbar spondylosis with lumbar facet arthropathy, and bilateral sacroiliitis, previously we had done a caudal epidural steroid injection with lysis of epidural adhesions 2, recently we did RFA at L2 L3 ,L5 bilaterally.she had minimal weakness in her right lower extremity she denies any fever or night sweats but she denies any change in the bowel movement or urination Unfortunately she had limited to no relief from recent radiofrequency ablations. Pain is described in the lower back worse in the left side with occasional radiation to the anterior thigh. I told her it can sometimes take up to a month to get benefit from the ablation should she should try to hang with it. Her and her daughter did have a question about gabapentin, although it is listed as an ALLERGY on her electronic medical record they noted that in the past she took gabapentin which made her mentally clouded. The time they discontinued it as she was living on her own but now she is living with her daughter and they would like to try gabapentin as it did help with her pain in the past. Physical Examinations : -Constitutiona : Cooperative , not in acute distress . -HEENT : nech : supple , no Lymphadenopathy , normal thyroid size . : eyes : no ptosis , no icterus, no photophobia . - neurologic : Cranial nerve II to XII intact , no focal neurological deffecit . -psychatric : alert , oriented X 3 , appropriate affect , intact judgment and insight . -Lymphatic : no Lymphadenopathy . - musculoskeltal : Lumber spine moter stegnth lower extremities ,thigh and legs 5/5 Right side , 5/5 Left side deep tendon reflexes : normal Knee Jerk , normal ankle Jerk lumber facet Loading Test =positive Right , positive Left Range of motion of the lumbar spine Flexion 30 degrees, extension 10 degrees strait leg raising test = positive at 30 degree Fabere test= positive Right , and positive LT . Sever tenderness over the Sacroiliac joint on the Right , and Left sides Gaenslen test= positive right ,and positive left . Seated flexion test= positive right ,and positive Left . Results MRI of the lumbar spine L2-3 bulging disc disease and facet arthropathy L3 4 bulging disc disease with facet arthropathy L4 5 bulging disc disease with facet arthropathy L5-S1 bulging disc disease and facet joint arthropathy Assessment and plan= 1-failed back surgery syndrome and lumbar area. 2-lumbar spondylosis with lumbar facet arthropathy without myelopathy. 3-bilateral sacroiliitis. At this time I will start her on gabapentin 300 mg at night. We will see if she has any benefit in the next few days from the radio frequency ablation. If does not work we can consider repeating caudal epidural steroid injection the future. We can also titrate her on gabapentin as needed future. I have spent 32 minutes on review of the records, review of the imaging available, [id number] interaction with the patient, medication management, follow-up care coordination and record creation. - PQRS measures = - Patient's medications are documented in the chart. -Tobacco use is negative and counseling.Given. -Patient's has not received pneumococcal vaccine. -Advanced care planning discussed, patient not eligible. -Opiate contract not signed. -Pain positive and follow-up visit/procedure is scheduled. -Patient's blood pressure measured [141/83 ] , and documented in the record ,and patient will follow up with the primary care. -Patient's weight was measured and body mass index [ 35.9 ] above the,normal limits and counseling was done. and patient instructed to follow-up with the primary care physician. -Patient was not identified as an unhealthy alcohol user Objective - Vital Signs Vital signs: Intake & Output 09/29/20 09/30/20 09/30/20 18:59 06:59 18:59 Weight 98.43 kg PQRS Measure Charge Sheet PQRS Narrative: Pain Intensity [Lower Back] 9 Scale Used Numeric (1 - 10) Hx Alcohol Use (MH) Yes Home Medications: Ambulatory Orders Meclizine [Antivert] 25 mg PO Q4HR PRN 03/21/14 Metoprolol Tartrate [Lopressor] 50 mg PO BID 03/21/14 Nitroglycerin Sl Tabs [Nitrostat] 0.4 mg SUBLINGUAL DIRECTED PRN 03/21/14 Warfarin [Coumadin] 5 mg PO SUTUTHSA 03/21/14 Acetaminophen [Tylenol] 500 mg PO Q4-6H PRN 03/17/20 Ascorbic Acid [Vitamin C] 1,000 mg PO DAILY 03/17/20 Cetirizine HCl [Zyrtec] 5 mg PO HS PRN 03/17/20 Cholecalciferol [Vitamin D3 (25 Mcg = 1000 Iu)] 5,000 unit PO DAILY 03/17/20 Famotidine [Pepcid] 10 mg PO QID PRN 03/17/20 Flecainide [Tambocor] 50 mg PO Q12HR 03/17/20 Levothyroxine Sodium [Synthroid] 50 mcg PO DAILY 03/17/20 Magnesium Citrate 500 mg PO DAILY 03/17/20 [place]-3 Fatty Acids [[place]-3] 690 mg PO DAILY 03/17/20 Potassium Gluconate 99 mg PO DAILY 03/17/20 Zinc Gluconate [Zinc] 50 mg PO DAILY 03/17/20 Warfarin [Coumadin] 2.5 mg PO MOWEFR 06/09/20 ondansetron HCL [Zofran] 8 mg PO Q8HR PRN 07/08/20 Gabapentin 300 mg PO HS 30 Days #30 cap 10/01/20 Controlled Substance Measures - Controlled Substance Measures Is patient prescribed a controlled substance at discharge?: Yes When asked, does pt state using other controlled substances?: No If prescribed controlled substance>3 days was MAPS reviewed?: Yes If Rx opioid, was Start Talking consent form obtained?: Yes If opioid is for acute pain is fill amount 7 days or less?: No Was information provided regarding opioid addiction?: No
== END ==
LOC: PNWHC3 11:09
PROVIDERS: ATTEND Anesthesiology
DX: M96.1 Postlaminectomy syndrome, not elsewhere classified (principal); M47.816 Spondylosis without myelopathy or radiculopathy, lumbar region; M46.1 Sacroiliitis, not elsewhere classified; Z88.1 Allergy status to other antibiotic agents; Z88.2 Allergy status to sulfonamides; Z88.6 Allergy status to analgesic agent; Z88.5 Allergy status to narcotic agent; Z88.8 Allergy status to other drugs, medicaments and biological substances; Z91.013 Allergy to seafood; Z91.048 Other nonmedicinal substance allergy status; Z91.041 Radiographic dye allergy status
CPT/HCPCS: 99211

== ENCOUNTER → 2020-10-29 | Outpatient (CLI) | payer MEDICARE, BC ==
[2020-10-29 10:40] VITALS: BP 130/77; PULSE 71; RESP 16; TEMP 98
--- NOTE | 2020-10-29 11:13 | P.PAINPG ---
Subjective Progress Note Date: 10/29/20 This is a follow-up visit for this 80 years old female with a chronic history of severe low back pain with radiation to the lower extremity bilaterally, she is diagnosed with failed back surgery syndrome lumbar area ,and lumbar spondylosis with lumbar facet arthropathy, and bilateral sacroiliitis, previously we had done a caudal epidural steroid injection with lysis of epidural adhesions 2, has had RFA at L2 L3 ,L5 bilaterally with minimal relief. In her last visit we told her that the radiofrequency ablation can take some time to kick in and we did start her on gabapentin 300 mg at night to see if it would help her.she had minimal weakness in her right lower extremity she denies any fever or night sweats but she denies any change in the bowel She noted that the gabapentin has been helpful for her although she does sometimes feel tired in the morning. She is accompanied by her daughter at this time. Her main concerns at this time are that she is having pain in her neck with radiation down the left lower extremity into the hands. She is unsure if this is due to her shoulder or her cervical spine. She also has pain in her knees for which she is seeing Dr. Constantino. We had a liliya discussion about her medication and her overall pain picture and how we can maximize her current tr eatments. We have decided that we will increase her gabapentin to 100 mg in the morning in addition to her 300 mg at night to see how she does in terms of her mental clouding. We will order a cervical spine CT to evaluate for cervical radiculopathy. She will see Dr. Constantino regarding her knee pain. I also gave her prescription for physical therapy to help with core muscle strengthening. Physical Examinations : -Constitutiona : Cooperative , not in acute distress . -HEENT : nech : supple , no Lymphadenopathy , normal thyroid size . : eyes : no ptosis , no icterus, no photophobia . - neurologic : Cranial nerve II to XII intact , no focal neurological deffecit . -psychatric : alert , oriented X 3 , appropriate affect , intact judgment and insight . -Lymphatic : no Lymphadenopathy . - musculoskeltal : Lumber spine moter stegnth lower extremities ,thigh and legs 5/5 Right side , 5/5 Left side deep tendon reflexes : normal Knee Jerk , normal ankle Jerk lumber facet Loading Test =positive Right , positive Left Range of motion of the lumbar spine Flexion 30 degrees, extension 10 degrees strait leg raising test = positive at 30 degree Fabere test= positive Right , and positive LT . Sever tenderness over the Sacroiliac joint on the Right , and Left sides Gaenslen test= positive right ,and positive left . Seated flexion test= positive right ,and positive Left . Cervical spine: Muscle atrophy noted. Pain over bilateral paraspinal muscles. Strength decreased on left side with shoulder flexion and biceps flexion. Reflexes intact. No villarreal sign. Spurling sign positive on the left side. Results MRI of the lumbar spine L2-3 bulging disc disease and facet arthropathy L3 4 bulging disc disease with facet arthropathy L4 5 bulging disc disease with facet arthropathy L5-S1 bulging disc disease and facet joint arthropathy Assessment and plan= 1-failed back surgery syndrome and lumbar area. 2-lumbar spondylosis with lumbar facet arthropathy without myelopathy. 3-bilateral sacroiliitis. We increased her gabapentin to 100 mg the morning addition to 300 mg that she is already taking at night.. Ordered cervical spine CT as she has a pacemaker and to evaluate for cervical radiculopathy specifically on the left side. Gave her prescription for physical therapy. She will see Dr Castellano regarding her bilateral knee pain. I have spent 32 minutes on review of the records, review of the imaging available, [id number] interaction with the patient, medication management, follow-up care coordination and record creation. - PQRS measures = - Patient's medications are documented in the chart. -Tobacco use is negative and counseling.Given. -Patient's has not received pneumococcal vaccine. -Advanced care planning discussed, patient not eligible. -Opiate contract not signed. -Pain positive and follow-up visit/procedure is scheduled. -Patient's blood pressure measured [141/83 ] , and documented in the record ,and patient will follow up with the primary care. -Patient's weight was measured and body mass index [ 35.9 ] above the,normal limits and counseling was done. and patient instructed to follow-up with the primary care physician. -Patient was not identified as an unhealthy alcohol user Objective - Vital Signs Vital signs: Intake & Output 10/27/20 10/28/20 10/28/20 18:59 06:59 18:59 Weight 103.873 kg PQRS Measure Charge Sheet PQRS Narrative: Pain Intensity [Back] 4 Scale Used Numeric (1 - 10) Hx Alcohol Use (MH) Yes Home Medications: Ambulatory Orders Meclizine [Antivert] 25 mg PO Q4HR PRN 03/21/14 Metoprolol Tartrate [Lopressor] 50 mg PO BID 03/21/14 Nitroglycerin Sl Tabs [Nitrostat] 0.4 mg SUBLINGUAL DIRECTED PRN 03/21/14 Warfarin [Coumadin] 5 mg PO SUTUTHSA 03/21/14 Acetaminophen [Tylenol] 500 mg PO Q4-6H PRN 03/17/20 Ascorbic Acid [Vitamin C] 1,000 mg PO DAILY 03/17/20 Cetirizine HCl [Zyrtec] 5 mg PO HS PRN 03/17/20 Cholecalciferol [Vitamin D3 (25 Mcg = 1000 Iu)] 5,000 unit PO DAILY 03/17/20 Famotidine [Pepcid] 10 mg PO QID PRN 03/17/20 Flecainide [Tambocor] 50 mg PO Q12HR 03/17/20 Levothyroxine Sodium [Synthroid] 50 mcg PO DAILY 03/17/20 Magnesium Citrate 500 mg PO DAILY 03/17/20 [place]-3 Fatty Acids [[place]-3] 690 mg PO DAILY 03/17/20 Potassium Gluconate 99 mg PO DAILY 03/17/20 Zinc Gluconate [Zinc] 50 mg PO DAILY 03/17/20 Warfarin [Coumadin] 2.5 mg PO MOWEFR 06/09/20 ondansetron HCL [Zofran] 8 mg PO Q8HR PRN 07/08/20 Gabapentin 100 mg PO DAILY 30 Days #30 cap 10/29/20 Gabapentin 300 mg PO HS 30 Days #30 cap 10/29/20 Controlled Substance Measures - Controlled Substance Measures Is patient prescribed a controlled substance at discharge?: Yes When asked, does pt state using other controlled substances?: No If prescribed controlled substance>3 days was MAPS reviewed?: Yes
== END | disposition home or self-care (01) ==
LOC: PNWHC3 10:26
PROVIDERS: ATTEND Anesthesiology
DX: M51.26 Other intervertebral disc displacement, lumbar region (principal); M51.27 Other intervertebral disc displacement, lumbosacral region; M47.816 Spondylosis without myelopathy or radiculopathy, lumbar region; M46.96 Unspecified inflammatory spondylopathy, lumbar region; M46.1 Sacroiliitis, not elsewhere classified; M96.1 Postlaminectomy syndrome, not elsewhere classified; Z79.899 Other long term (current) drug therapy; Z79.01 Long term (current) use of anticoagulants; Z79.890 Hormone replacement therapy
CPT/HCPCS: 99211

== ENCOUNTER → 2020-11-21 | Outpatient (CLI) | payer MEDICARE, BC ==
--- NOTE | 2020-11-21 20:55 | CT ---
EXAMINATION TYPE: CT cervical spine wo con DATE OF EXAM: 11/21/2020 COMPARISON: None HISTORY: cervical radiculopathy CT DLP: 783 mGycm Automated exposure control for dose reduction was used. TECHNIQUE: CT scan of the cervical spine is obtained without contrast, axial images are obtained, sa gittal and coronal reformatted images are also reviewed. FINDINGS: Cervical spine is visualized in its entirety from C1 through upper thoracic levels, demonst rates satisfactory alignment without evidence of acute fracture or dislocation. Prevertebral soft ti ssue appears within normal limits. The C1-C2 articulation is within normal limits on the coronal steph ges. Posterior disc osteophyte complexes at C3-C7 with uncovertebral and facet joint hypertrophy caus ing causing mild canal stenosis at these levels. Multilevel mild to moderate neural foraminal stenosi s worst at C4-C5 on the left and C5-C6 on the right where it is moderate. IMPRESSION: Degenerative changes of the cervical spine as described with moderate neural foraminal st enosis at C4-C5 on the left and C5-C6 on the right.
== END | disposition home or self-care (01) ==
LOC: RADCTMAIN 13:06
PROVIDERS: ATTEND Anesthesiology
DX: M48.02 Spinal stenosis, cervical region (principal); M54.12 Radiculopathy, cervical region
CPT/HCPCS: 72125

== ENCOUNTER → 2020-12-16 | Outpatient (CLI) | payer MEDICARE, BC ==
[2020-12-16 11:59] VITALS: BP 149/88; PULSE 74; RESP 18; TEMP 98.4
--- NOTE | 2020-12-16 13:51 | P.PAINPG ---
Subjective Progress Note Date: 12/16/20 Principal diagnosis: Lumbar spondylosis without myelopathy Myofascial pain syndrome Cervical spondylosis without myelopathy Cervical spinal canal stenosis Osteoarthritis of bilateral knee Chronic pain syndrome Mrs. hoffman is a 80-year-old pleasant female came to the [facility] pain clinic along with her [id number]. Today she came to the pain clinic to look for alternative pain medications after discontinuing gabapentin 7 days ago. She was experiencing blurred vision, tingling, and jittery feeling secondary to gabapentin, so patient gradually discontinued last dose was 7 days ago. She had a cervical computed tomography scan done on 11/21/2020 showed po sterior disc osteophyte complexes at C3 to C7 with uncovertebral, and facet joint hypertrophy causing mild canal stenosis at these levels. Multilevel mild to moderate neural foraminal stenosis worst at C4-C5 on the left side, and C5-C6 on the right. She is also complaining of right shoulder pain, and weakness sometimes. She is experiencing numbness tingling sensation in her bilateral upper extremities. Sometimes she has difficulty sleeping during the nighttime secondary to pain. Today she rated her pain is 6 out of 10 in severity. Describes her pain is aching, throbbing, burning, tingling sensation. She also complaining pain in her lumbar area sometimes radiating to her lower extremity. She tried multiple intervention procedure for her lower back which helped only marginal pain relief. Her pain medications helping to some extent in relieving her pain. She denied any side effects of the medications except gabapentin. Patient denied any bowel or bladder problems. Patient denied any red flag symptoms. Patient is planning to go for knee arthroplasty with Dr. Constantino. Objective - Vital Signs Vital signs: Vital Signs Temp 98.4 F 12/16/20 11:26 Pulse 74 12/16/20 11:26 Resp 18 12/16/20 11:26 BP 149/88 12/16/20 11:26 Pulse Ox 95 12/16/20 11:26 - Exam 1-Constitutional : Cooperative , not in acute distress . 2-HEENT : Neck ; supple , no Lymphadenopathy , no Thyromegaly , normal thyroid size , normal range of motion . Eyes : no ptosis , no icterus, no photophobia . ENT : normal / hard of hearing , normal oropharynx , no Thrush . 3- Respiratory : Not in labored breathing 4- Cardiovascular : regular rate and rhythem , S1 , S2 , 5-Integumentary : , normal skin turgor , no cyanotic . 6- neurologic : no focal neurological deffecit . 7-psychatric : alert , oriented X 3 , appropriate affect , intact judgment and insight . 8- musculoskeltal: Antalgic gait , exams of the cervical spine = cervical spine and paraspinal muscle tenderness positive. positive cervical facet loading test, cervical Spurling test: positive n bilateral upper extremity strength 3 out of 5, and decreased range of motion. Range of motion left shoulder area at the injection, abduction lateral rotation, extension ALL decreased compared to right side. exams of the Lumber spine = positive lumber facet Loading Test ( tenderness over the facet joint lumber area ) strait leg raising test : Not done secondary to pain Bilateral tenderness over the Sacroiliac joint Assessment and Plan Assessment: #1 lumbar spondylosis without myelopathy #2 cervical spondylosis without myelopathy #3 Cervical spinal canal stenosis, neural foraminal stenosis #4 myofascial pain syndrome #5 chronic pain syndrome #6 sacroiliac joint dysfunction #7 obesity, #8 osteoarthritis with multiple joint Plan: Patient was thoroughly discussed regarding medical, and intervention management. patient understood, and answered all the questions. #1 physical therapy: Patient tried in the past which was not helped and made his pain worse so he doesn't want to try physical therapy at this time until his pain controlled to some extent. Patient still counseled regarding the importance of daily activities, and slow exercise including emperatriz chi will help better pain control. #2 medications : Patient was not prescribed any narcotics at this time as patient smoking marijuana occasionally. Patient discussed regarding Topamax for neuropathic pain, also discussed with the patient regarding Topamax and use kidney stones if not drinking enough water. But patient has concern that she is not drinking enough water so she wants to hold the medication. #3 interventional procedure : Discussed with the patient regarding cervical epidural procedure but patient refuses to guard this time as previous interventional procedures not helped, patient want to consider after knee replacement if needed. Procedure complications and alternatives discussed with the patient . #4 counseling- had a lengthy discussion with the patient regarding importance of lifestyle modification including decreasing intake of sugar, process food, and intermittent fasting for weight loss, and decreasing the inflammation so that overall it helps for chronic pain, and weight loss. Patient really understood and answered all the questions. Also counseled regarding importance of emperatriz chi exercise in controlling her pain as well as balance. Patient also counseled regarding importance of medication in controlling overall pain, and other health issues. Patient recommended to follow up with the pain clinic as needed in future.. Time with Patient: Less than 30 PQRS Measure Charge Sheet Measure #130: Documentation of Current Meds in Medical Chart: Patient's medications documented in chart Measure #226: Tobacco Use: Screen & Cessation Intervention: Pt not a tobacco user Measure #111: Pneumonia Vaccination: Pneumococcal vaccine administered or previously received Measure #317: Preventitive Care & Scrn High Bld Press & F/U: Pre-hypertensive or hypertensive BP documented, pt will f/u with PCP Measure #128: Body Mass Index (BMI) Screening & Follow-up: BMI documented ABOVE normal parameters - f/u documented Measure #131: Pain Assessment & Follow-up: Pain positive & plan documented Measure #431: Unhealthy Alcohol Use Preventative Care & Scrn: Patient not identified as an unhealthy alcohol user PQRS Narrative: Blood Pressure 149/88 Pain Intensity [Back] 7 Scale Used Numeric (1 - 10) Hx Alcohol Use (MH) Yes Home Medications: Ambulatory Orders Meclizine [Antivert] 25 mg PO Q4HR PRN 03/21/14 Metoprolol Tartrate [Lopressor] 50 mg PO BID 03/21/14 Nitroglycerin Sl Tabs [Nitrostat] 0.4 mg SUBLINGUAL DIRECTED PRN 03/21/14 Warfarin [Coumadin] 5 mg PO SUTUWETHSA 03/21/14 Acetaminophen [Tylenol] 500 mg PO Q4-6H PRN 03/17/20 Ascorbic Acid [Vitamin C] 500 - 1,000 mg PO DAILY 03/17/20 Cetirizine HCl [Zyrtec] 2.5 mg PO HS PRN 03/17/20 Cholecalciferol [Vitamin D3 (25 Mcg = 1000 Iu)] 5,000 unit PO DAILY 03/17/20 Famotidine [Pepcid] 10 mg PO QID PRN 03/17/20 Flecainide [Tambocor] 50 mg PO Q12HR 03/17/20 Levothyroxine Sodium [Synthroid] 50 mcg PO DAILY 03/17/20 Magnesium Citrate 500 mg PO DAILY 03/17/20 [place]-3 Fatty Acids [[place]-3] 690 mg PO DAILY 03/17/20 Potassium Gluconate [Potassium Gluconate ER] 99 mg PO DAILY 03/17/20 Zinc Gluconate [Zinc] 50 mg PO DAILY 03/17/20 Warfarin [Coumadin] 2.5 mg PO MOFR 06/09/20 Gabapentin 100 mg PO HS 12/11/20 Controlled Substance Measures - Controlled Substance Measures Is patient prescribed a controlled substance at discharge?: No When asked, does pt state using other controlled substances?: No If prescribed controlled substance>3 days was MAPS reviewed?: No If Rx opioid, was Start Talking consent form obtained?: No If opioid is for acute pain is fill amount 7 days or less?: No Was information provided regarding opioid addiction?: No
== END | disposition home or self-care (01) ==
LOC: PNWHC3 11:11
DX: M47.896 Other spondylosis, lumbar region (principal); M47.892 Other spondylosis, cervical region; M48.02 Spinal stenosis, cervical region; M79.18 Myalgia, other site; M53.3 Sacrococcygeal disorders, not elsewhere classified; E66.9 Obesity, unspecified; M19.09 Primary osteoarthritis, other specified site
CPT/HCPCS: 99211

== ENCOUNTER 2021-05-08 03:23 | Observation (INO) | payer MEDICARE, BC ==
[2021-05-08 04:10] LABS: Basophils # (A) 0.1 k/uL (0-0.2); Basophils % (A) 1 %; Eosinophils # (A) 0.3 k/uL (0-0.7); Eosinophils % (A) 4 %; HCT 43.2 % (34.0-46.0); HGB 14.3 gm/dL (11.4-16.0); Lymphocytes # (A) 2.3 k/uL (1.0-4.8); Lymphocytes % (A) 27 %; MCH 33.6 pg (25.0-35.0); MCHC 33.1 g/dL (31.0-37.0); MCV 101.6 fL (80.0-100.0); Macrocytosis Slight; Mean Platelet Volume 7.3; Monocytes # (A) 0.7 k/uL (0-1.0); Monocytes % (A) 8 %; Neutrophils # (A) 5.1 k/uL (1.3-7.7); Neutrophils % (A) 58 %; Platelet Count 282 k/uL (150-450); RBC 4.25 m/uL (3.80-5.40); RDW 13.1 % (11.5-15.5); WBC 8.7 k/uL (3.8-10.6)
[2021-05-08 04:22] LABS: Albumin 4.1 g/dL (3.5-5.0); Calcium 9.1 mg/dL (8.4-10.2); INR 2.2 (<1.2); Magnesium 2.3 mg/dL (1.6-2.3); Partial Thromboplastin Time 30.2 sec (22.0-30.0); Potassium 4.2 mmol/L (3.5-5.1); Prothrombin Time 22.3 sec (9.0-12.0); Total Protein 7.2 g/dL (6.3-8.2)
--- NOTE | 2021-05-08 05:04 | XR ---
EXAMINATION TYPE: XR chest 1V portable DATE OF EXAM: 05/08/2021 COMPARISON: 03/29/2019 HISTORY: Chest pain TECHNIQUE: FINDINGS: Heart and mediastinum are normal. Lungs are clear. Diaphragm is normal. Bony thorax is inta ct. There is left axillary pacemaker. There are chest leads. IMPRESSION: Normal chest. No change.
[2021-05-08] MEDS ORDERED: NITROGLYCERIN SL TABS 0.4 MG TAB SUBLINGUAL PRN (05:16)
--- NOTE | 2021-05-08 05:27 | ED ---
Chest Pain HPI - General Chief Complaint: Chest Pain Stated Complaint: Chest Pain Time Seen by Provider: 05/08/21 03:32 Source: patient Mode of arrival: EMS - History of Present Illness Initial Comments: This patient is an 81-year-old woman who is here to be evaluated for chest pain and also vertigo symptoms. Patient states she had been in bed and then was awakened by intense feeling of dizziness further stating that it felt like spinning. She also noticed that she had a tightness in her chest. Patient states that the pain became moderately intense and then she took some home nitroglycerin and called EMS. She states between the nitroglycerin she took at home and on the EMS had given the symptoms there had more or less resolved. She is continuing have a little bit of nausea and she states she has an intense dizzy or vertigo feeling. MD Complaint: chest pain -: hour(s) Onset: during rest, awoke with symptoms Pain Location: substernal Pain Radiation: none Severity: moderate Quality: tightness Consistency: now resolved Improves With: nitroglycerin Worsens With: nothing Anginal Symptoms: nausea, other (Vertigo) Treatments Prior to Arrival: nitroglycerin - Related Data Home Medications Medication Instructions Recorded Confirmed Meclizine [Antivert] 25 mg PO Q4HR PRN 03/21/14 12/11/20 Metoprolol Tartrate [Lopressor] 50 mg PO BID 03/21/14 12/11/20 Nitroglycerin Sl Tabs [Nitrostat] 0.4 mg SUBLINGUAL DIRECTED PRN 03/21/14 12/11/20 Warfarin [Coumadin] 5 mg PO SUTUWETHSA 03/21/14 12/11/20 Acetaminophen [Tylenol] 500 mg PO Q4-6H PRN 03/17/20 12/11/20 Ascorbic Acid [Vitamin C] 500 - 1,000 mg PO DAILY 03/17/20 12/11/20 Cetirizine HCl [Zyrtec] 2.5 mg PO HS PRN 03/17/20 12/11/20 Cholecalciferol [Vitamin D3 (25 5,000 unit PO DAILY 03/17/20 12/11/20 Mcg = 1000 Iu)] Famotidine [Pepcid] 10 mg PO QID PRN 03/17/20 12/11/20 Flecainide [Tambocor] 50 mg PO Q12HR 12/07/20 09/02/21 Levothyroxine Sodium [Synthroid] 50 mcg PO DAILY 03/17/20 12/11/20 Magnesium Citrate 500 mg PO DAILY 03/17/20 12/11/20 [place]-3 Fatty Acids [[place]-3] 690 mg PO DAILY 03/17/20 12/11/20 Potassium Gluconate [Potassium 99 mg PO DAILY 03/17/20 12/11/20 Gluconate ER] Zinc Gluconate [Zinc] 50 mg PO DAILY 03/17/20 12/11/20 Warfarin [Coumadin] 2.5 mg PO MOFR 06/09/20 12/11/20 Gabapentin 100 mg PO HS 12/11/20 12/11/20 Allergies Allergy/AdvReac Type Severity Reaction Status Date / Time clonidine Allergy Severe extreme Verified 12/11/20 08:46 dizziness & faint doxycycline Allergy Severe Rash/Hives Verified 12/11/20 08:46 erythromycin base Allergy Severe nausea,diarrhea,vertigo,stomach Verified 12/11/20 08:46 problems hydrocodone bitartrate Allergy Severe Itching Verified 12/11/20 08:46 [From Lortab] indomethacin [From Indocin] Allergy Severe Hallucinations,severe Verified 12/11/20 08:46 MYERS indomethacin sodium Allergy Severe Hallucinations,severe Verified 12/11/20 08:46 [From Indocin] MYERS levofloxacin [From Levaquin] Allergy Severe Rash & Verified 12/11/20 08:46 joint pain morphine Allergy Severe Nausea & Verified 12/11/20 08:46 Vomiting naproxen [From Naprosyn] Allergy Severe Severe Verified 12/11/20 08:46 Headache sulindac [From Clinoril] Allergy Severe Nausea Verified 12/11/20 08:46 tolmetin sodium Allergy Severe Nausea Verified 12/11/20 08:46 [From Tolectin] adhesive tape Allergy Itching Verified 12/11/20 08:46 allopurinol Allergy heart Verified 12/11/20 08:46 fluttering bacitracin [From Cortisporin] Allergy Itching Verified 12/11/20 08:46 bacitracin zinc Allergy Itching Verified 12/11/20 08:46 [From Cortisporin] bupivacaine HCl Allergy joint pain Verified 12/11/20 08:46 [From Marcaine] cephalexin monohydrate Allergy Rash and Verified 12/11/20 08:46 [From Keflex] stomach problems ciprofloxacin Allergy Rash/Hives Verified 12/11/20 08:46 clarithromycin Allergy Diarrhea Verified 12/11/20 08:46 codeine Allergy Nausea Verified 12/11/20 08:46 dexamethasone Allergy Severe Verified 12/11/20 08:46 headache & drugged feeling dexamethasone sod phosphate Allergy Severe Verified 12/11/20 08:46 [From Decadron] headache & drugged feeling esomeprazole [From Nexium] Allergy Unknown Verified 12/11/20 08:46 estradiol Allergy Painful Verified 12/11/20 08:46 arms, spine & breasts hydrocortisone Allergy Itching Verified 12/11/20 08:46 [From Cortisporin] ibuprofen [From Motrin] Allergy Rapid Verified 12/11/20 08:46 Heart Rate iodine Allergy Unknown Verified 12/11/20 08:46 liotrix [From Thyrolar-1/4] Allergy Rapid Verified 12/11/20 08:46 Heart Rate, sob,severe back pain lisinopril Allergy dizziness Verified 12/11/20 08:46 metoclopramide HCl Allergy Nausea-Stomach Verified 12/11/20 08:46 [From Reglan] problems neomycin [From Cortisporin] Allergy Itching Verified 12/11/20 08:46 neomycin sulfate Allergy Itching Verified 12/11/20 08:46 [From Cortisporin] omeprazole Allergy facial Verified 12/11/20 08:46 swelling oxycodone HCl [From Percocet] Allergy sob,dizzy Verified 12/11/20 08:46 & drugged feeling polymyxin B Allergy Itching & Verified 12/11/20 08:46 swelling of the eyes polymyxin B sulfate Allergy Itching Verified 12/11/20 08:46 [From Cortisporin] pregabalin [From Lyrica] Allergy Weight Verified 12/11/20 08:46 gain & blurry vision propafenone Allergy severe Verified 12/11/20 08:46 diarrhea, itchy, spironolactone Allergy Internal Verified 12/11/20 08:46 [From Aldactone] itching ,extreme dizziness sulfamethoxazole Allergy Severe Verified 12/11/20 08:46 [From Bactrim] joint pain tetracycline Allergy Pt told by Verified 12/11/20 08:46 Pharmacist never to take r/t other allergies tramadol HCl [From Ultram] Allergy Nausea & Verified 12/11/20 08:46 SOB trimethoprim [From Bactrim] Allergy Severe Verified 12/11/20 08:46 joint pain isosorbide AdvReac Severe severe Verified 12/11/20 08:46 headache,dizziness & diarrhea gabapentin [From Neurontin] AdvReac "off Verified 12/11/20 08:46 balance" Hexadrol Allergy Severe Uncoded 12/11/20 08:46 headache & drugged feeling shell fish Allergy Joint and Uncoded 12/11/20 08:46 body pain spectro-abel Allergy Frozen Uncoded 12/11/20 08:46 face for several days after Review of Systems ROS Statement: Those systems with pertinent positive or pertinent negative responses have been documented in the HPI. ROS Other: All systems not noted in ROS Statement are negative. Constitutional: Denies: fever, chills Respiratory: Denies: cough, dyspnea Cardiovascular: Reports: chest pain. Denies: palpitations, orthopnea, edema, syncope Gastrointestinal: Reports: nausea. Denies: abdominal pain, vomiting, diarrhea Genitourinary: Denies: dysuria, hematuria Musculoskeletal: Denies: back pain Skin: Denies: rash Neurological: Reports: vertigo. Denies: headache, weakness, numbness, paresthesias Psychiatric: Reports: anxiety EKG Findings - EKG Comments: EKG Findings:: Underlying rhythm appears to be atrial fibrillation with a rate approximate 75 bpm. Possible old anteroseptal infarct. Possible old inferior infarct - EKG Results: EKG: normal axis Past Medical History Past Medical History: Atrial Fibrillation, Eye Disorder, Fibromyalgia, GERD/Reflux, Hypertension, Osteoarthritis (OA), Thyroid Disorder Additional Past Medical History / Comment(s): Got J&J Vaccine. Blind in left eye, hiatal hernia, UTI's, hx ventricular tachycardia, spinal stenosis, spondylosis, hx right eye retinal tear-laser repair in office. Hx Malaria. "Liver attacks, when younger, lived in [place] Chronic fatigue. "Have lots of trouble with left arm and shoulder". vertigo History of Any Multi-Drug Resistant Organisms: None Reported Past Surgical History: Appendectomy, Back Surgery, Cardiac Ablation, Cholecystectomy, Heart Catheterization, Hysterectomy, Orthopedic Surgery, Pacemaker, Tonsillectomy Additional Past Surgical History / Comment(s): Medtronic Pacemaker, left knee arthroscopy, right leg swelling drained, lower spine surgery, laminectomy and fusion, left eye surgery X2, Past Anesthesia/Blood Transfusion Reactions: Motion Sickness, Postoperative Nausea & Vomiting (PONV) Type of Cardiac Device: Permanent Pacemaker Device Placement Date:: 2011 Past Psychological History: No Psychological Hx Reported Smoking Status: Never smoker Past Alcohol Use History: Rare Past Drug Use History: None Reported - Past Family History Mother Family Medical History: Cancer Brother(s) Family Medical History: Cancer Sister(s) Family Medical History: Cancer General Exam General appearance: alert, in no apparent distress Head exam: Present: atraumatic, normocephalic Eye exam: Present: normal appearance. Absent: scleral icterus, conjunctival injection Neck exam: Present: normal inspection Respiratory exam: Present: normal lung sounds bilaterally. Absent: respiratory distress, wheezes, rales, rhonchi, stridor Cardiovascular Exam: Present: regular rate, irregular rhythm, systolic murmur. Absent: diastolic murmur, rubs, gallop GI/Abdominal exam: Present: soft. Absent: distended, tenderness, guarding, rebound, rigid, mass Extremities exam: Present: normal inspection, normal capillary refill. Absent: pedal edema, calf tenderness Back exam: Present: normal inspection. Absent: CVA tenderness (R), CVA tenderness (L) Neurological exam: Present: alert Psychiatric exam: Present: anxious Skin exam: Present: warm, dry, intact, normal color. Absent: rash Course Vital Signs 05/08/21 05/08/21 03:33 04:49 Temperature 97.9 F Pulse Rate 65 68 Respiratory 18 18 Rate Blood Pressure 163/73 130/61 O2 Sat by Pulse 99 96 Oximetry Chest Pain MDM - MDM This patient is an 81-year-old woman who presents to be evaluated for chest pain as well as vertigo. The patient did have resolution of the chest pain with nitroglycerin, and therefore will admit for serial cardiac enzymes and telemetry monitoring. Disposition Clinical Impression: Chest pain, Vertigo Disposition: ADMITTED IP TO THIS HOSP Condition: Fair Instructions (If sedation given, give patient instructions): Chest Pain (ED) Is patient prescribed a controlled substance at d/c from ED?: No Referrals: Gregorio Serrano MD [Primary Care Provider] - 1-2 days
[2021-05-08] MEDS ORDERED: SODIUM CHLORIDE 0.9% 1,000 ML IV SCH (05:30)
[2021-05-08 08:15] VITALS: BP 151/89; PULSE 69; RESP 16; TEMP 97.4
[2021-05-08] MEDS ORDERED: FLECAINIDE 50 MG TAB PO SCH (09:00)
[2021-05-08] MEDS ORDERED: METOPROLOL TARTRATE 25 MG TAB PO SCH (09:00)
[2021-05-08] MEDS ORDERED: METOPROLOL TARTRATE 25 MG TAB PO STA (10:36)
--- NOTE | 2021-05-08 11:08 | P.CRDCN ---
History of Present Illness History of present illness: HISTORY OF PRESENTING ILLNESS This is a pleasant 81-year-old female past medical history significant for persistent atrial fibrillation on coumadin, previous ablation 10+years ago, hypertension, sick sinus syndrome status post dual-chamber pacemaker implantation in 2011 . She follows in the office with Dr. Zhang. We have been asked to see in consultation for chest pain. Patient states yesterday she woke up with symptoms of the "room spinning", she states it was sudden onset, she saw the whole room spinning, she felt if she sat up at the edge of the bed she may fall over. She states she elevated her feet with improvement. She states when she got up the room spinning sensation returned. She had ringing in her ears. She then had squeezing chest discomfort in the center of her chest. Non- radiating, non-exertional. She did not have any associated palpitations, shortness of breath, diaphoresis, nausea, vomiting. She had no syncope or loss of consciousness. She states she took a nitroglycerin with no relief. She then took a total of 3 nitroglycerins and her chest discomfort soon resolved. She came to the emergency department for further evaluation. Patient recently saw Dr. Zhang in the office in January 2021 patient with atrial demand pacing, plan for patient to most likely have replacing of the ventricular lead during the next generator change DIAGNOSTICS EKG reveals atrial tachycardia with controlled ventricular response, cycling at 300ms Most recent echocardiogram in 08/2012 revealed normal ejection fraction, no significant wall motion abnormalities Telemetry tracings indicate atrial tachycardia with controlled ventricular rate Chest xray no acute cardiopulmonary process. Laboratory reviewed, troponin negative 3, Coban negative, INR 2.2, CBC unr emarkable, sodium 138, potassium 4.2, BUN 18, serum current 0.9 Current home medications include Coumadin, metoprolol titrate 25 mg twice a day, flecainide 50 mg twice a day REVIEW OF SYSTEMS At the time of my exam: CONSTITUTIONAL: Denies fever or chills. CARDIOVASCULAR: Denies chest pain, shortness of breath, orthopnea, PND or palpitations. RESPIRATORY: Denies cough. GASTROINTESTINAL: Denies abdominal pain, diarrhea, constipation, nausea or vomiting. MUSCULOSKELETAL: Denies myalgias. NEUROLOGIC: Denies numbness, tingling, headache or weakness. ENDOCRINE: Denies fatigue, weight change, polydipsia or polyurina. GENITOURINARY: Denies burning, hematuria or urgency with micturation. HEMATOLOGIC: Denies history of anemia or bleeding. PHYSICAL EXAMINATION Blood pressure 151/89, heart 69, afebrile, oxygen saturations greater than 92% on room air CONSTITUTIONAL: No apparent distress. HEENT: Head is normocephalic. Pupils are equal, round. Sclerae anicteric. Mucous membranes of the mouth are moist. No JVD. No carotid bruit. CHEST EXAMINATION: Lungs are clear to auscultation. No chest wall tenderness is noted on palpation or with deep breathing. HEART EXAMINATION: Regular rate and rhythm. S1, S2 heard. No murmurs, gallops or rub. ABDOMEN: Soft, nontender. Positive bowel sounds. EXTREMITIES: 2+ peripheral pulses, no lower extremity edema and no calf tenderness. SKIN: warm, dry NEUROLOGIC EXAMINATION: Patient is awake, alert and oriented x3. ASSESSMENT Dizziness, room spinning sensation possibly vertigo Chest pain, atypical, acute coronary syndrome has been ruled out Persistent atrial fibrillation on Coumadin Atrial tachycardia Hypertension Sick sinus syndrome status post dual-chamber pacemaker implantation in 2011 PLAN -Device interrogated this morning revealed persistent atrial fibrillation with intermittent atrial fibrillation with RVR, No evidence of ventricular ar rhythmias -We will increase patient's beta anette metoprolol tartrate to 50mg BID -Continue home cardiac medications -From a cardiology perspective patient is stable to be discharged today and follow up with Dr. Zhang in 1 week. Thank you kindly for this consultation. Nurse Practitioner note has been reviewed, I agree with a documented findings and plan of care. Patient was seen and examined. Past Medical History Past Medical History: Atrial Fibrillation, Eye Disorder, Fibromyalgia, GERD/Reflux, Hypertension, Osteoarthritis (OA), Thyroid Disorder Additional Past Medical History / Comment(s): Got J&J Vaccine. Blind in left eye, hiatal hernia, UTI's, hx ventricular tachycardia, spinal stenosis, spondylosis, hx right eye retinal tear-laser repair in office. Hx Malaria. "Liver attacks, when younger, lived in [place]." Chronic fatigue. "Have lots of trouble with left arm and shoulder". vertigo History of Any Multi-Drug Resistant Organisms: None Reported Past Surgical History: Appendectomy, Back Surgery, Cardiac Ablation, Cholecystectomy, Heart Catheterization, Hysterectomy, Orthopedic Surgery, Pacemaker, Tonsillectomy Additional Past Surgical History / Comment(s): Medtronic Pacemaker, left knee arthroscopy, right leg swelling drained, lower spine surgery, laminectomy and fusion, left eye surgery X2, Past Anesthesia/Blood Transfusion Reactions: Motion Sickness, Postoperative Nausea & Vomiting (PONV) Type of Cardiac Device: Permanent Pacemaker Device Placement Date:: 2011 Past Psychological History: No Psychological Hx Reported Smoking Status: Never smoker Past Alcohol Use History: Rare Past Drug Use History: None Reported - Past Family History Mother Family Medical History: Cancer Brother(s) Family Medical History: Cancer Sister(s) Family Medical History: Cancer Medications and Allergies Home Medications Medication Instructions Recorded Confirmed Type Nitroglycerin Sl Tabs [Nitrostat] 0.4 mg SL Q5M PRN 03/21/14 05/08/21 History Warfarin [Coumadin] 5 mg PO [id number]@209903/21/14 05/08/21 History Ascorbic Acid [Vitamin C] 1,000 mg PO DAILY 03/17/20 05/08/21 History Famotidine [Pepcid] 20 mg PO AC-LUNCH 03/17/20 05/08/21 History Flecainide [Tambocor] 50 mg PO BID 03/17/20 05/08/21 History Levothyroxine Sodium [Synthroid] 50 mcg PO AC-BRKFST 03/17/20 05/08/21 History [place]-3 Fatty Acids [[place]-3] 1,000 mg PO DAILY 03/17/20 05/08/21 History Zinc Gluconate [Zinc] 50 mg PO DAILY 03/17/20 05/08/21 History Warfarin [Coumadin] 2.5 mg PO THSA@209906/09/20 05/08/21 History Magnesium Oxide [Mag-Ox] 400 mg PO DAILY 05/08/21 05/08/21 History Metoprolol Tartrate [Lopressor] 50 mg PO BID 30 Days #60 tab 05/08/21 Rx Allergies Allergy/AdvReac Type Severity Reaction Status Date / Time doxycycline Allergy Severe Rash/Hives Verified 05/08/21 07:04 hydrocodone bitartrate Allergy Severe Itching Verified 05/08/21 07:04 [From Lortab] levofloxacin [From Levaquin] Allergy Severe Rash & Verified 05/08/21 07:04 joint pain adhesive tape Allergy Itching Verified 05/08/21 07:04 bacitracin [From Cortisporin] Allergy Itching Verified 05/08/21 07:04 bacitracin zinc Allergy Itching Verified 05/08/21 07:04 [From Cortisporin] cephalexin monohydrate Allergy Rash and Verified 05/08/21 07:04 [From Keflex] stomach problems ciprofloxacin Allergy Rash/Hives Verified 05/08/21 07:04 esomeprazole [From Nexium] Allergy Unknown Verified 05/08/21 07:04 hydrocortisone Allergy Itching Verified 05/08/21 07:04 [From Cortisporin] iodine Allergy Unknown Verified 05/08/21 07:04 liotrix [From Thyrolar-1/4] Allergy Rapid Verified 05/08/21 07:04 Heart Rate, sob,severe back pain neomycin [From Cortisporin] Allergy Itching Verified 05/08/21 07:04 neomycin sulfate Allergy Itching Verified 05/08/21 07:04 [From Cortisporin] omeprazole Allergy facial Verified 05/08/21 07:04 swelling oxycodone HCl [From Percocet] Allergy sob,dizzy Verified 05/08/21 07:04 & drugged feeling polymyxin B Allergy Itching & Verified 05/08/21 07:04 swelling of the eyes tetracycline Allergy Pt told by Verified 05/08/21 07:04 Pharmacist never to take r/t other allergies tramadol HCl [From Ultram] Allergy Nausea & Verified 05/08/21 07:04 SOB clonidine AdvReac Severe extreme Verified 05/08/21 07:04 dizziness & faint erythromycin base AdvReac Severe nausea,diarrhea,vertigo,stomach Verified 05/08/21 07:04 problems indomethacin [From Indocin] AdvReac Severe Hallucinations,severe Verified 05/08/21 07:04 MYERS indomethacin sodium AdvReac Severe Hallucinations,severe Verified 05/08/21 07:04 [From Indocin] MYERS isosorbide AdvReac Severe severe Verified 05/08/21 07:04 headache,dizziness & diarrhea morphine AdvReac Severe Nausea & Verified 05/08/21 07:04 Vomiting naproxen [From Naprosyn] AdvReac Severe Severe Verified 05/08/21 07:04 Headache sulindac [From Clinoril] AdvReac Severe Nausea Verified 05/08/21 07:04 tolmetin sodium AdvReac Severe Nausea Verified 05/08/21 07:04 [From Tolectin] allopurinol AdvReac heart Verified 05/08/21 07:04 fluttering bupivacaine HCl AdvReac joint pain Verified 05/08/21 07:04 [From Marcaine] clarithromycin AdvReac Diarrhea Verified 05/08/21 07:04 codeine AdvReac Nausea Verified 05/08/21 07:04 dexamethasone AdvReac Severe Verified 05/08/21 07:04 headache & drugged feeling dexamethasone sod phosphate AdvReac Severe Verified 05/08/21 07:04 [From Decadron] headache & drugged feeling estradiol AdvReac Painful Verified 05/08/21 07:04 arms, spine & breasts gabapentin [From Neurontin] AdvReac "off Verified 05/08/21 07:04 balance" ibuprofen [From Motrin] AdvReac Rapid Verified 05/08/21 07:04 Heart Rate lisinopril AdvReac dizziness Verified 05/08/21 07:04 metoclopramide HCl AdvReac Nausea-Stomach Verified 05/08/21 07:04 [From Reglan] problems polymyxin B sulfate AdvReac Itching Verified 05/08/21 07:04 [From Cortisporin] pregabalin [From Lyrica] AdvReac Weight Verified 05/08/21 07:04 gain & blurry vision propafenone AdvReac severe Verified 05/08/21 07:04 diarrhea, itchy, shellfish derived AdvReac Joint and Verified 05/08/21 07:04 Body Pain spironolactone AdvReac Internal Verified 05/08/21 07:04 [From Aldactone] itching ,extreme dizziness sulfamethoxazole AdvReac Severe Verified 05/08/21 07:04 [From Bactrim] joint pain trimethoprim [From Bactrim] AdvReac Severe Verified 05/08/21 07:04 joint pain Hexadrol AdvReac Severe Uncoded 05/08/21 07:04 headache & drugged feeling spectro-abel AdvReac Frozen Uncoded 05/08/21 07:04 face for several days after Physical Exam Vitals: Vital Signs Temp Pulse Resp BP Pulse Ox 05/08/21 06:10 70 18 135/81 97 05/08/21 04:49 68 18 130/61 96 01/28/22 03:33 97.9 F 65 18 163/73 99 Intake and Output 05/07/21 05/08/21 05/08/21 22:59 06:59 14:59 Other: Weight 110.042 kg Results 05/08/21 03:40 05/08/21 03:40 Cardiac Enzymes 05/08/21 05/08/21 Range/Units 03:40 03:40 AST 34 (14-36) U/L Troponin I <0.012 (0.000-0.034) ng/mL Coagulation 05/08/21 Range/Units 03:40 PT 22.3 H (9.0-12.0) sec APTT 30.2 H (22.0-30.0) sec CBC 05/08/21 Range/Units 03:40 WBC 8.7 (3.8-10.6) k/uL RBC 4.25 (3.80-5.40) m/uL Hgb 14.3 (11.4-16.0) gm/dL Hct 43.2 (34.0-46.0) % Plt Count 282 (150-450) k/uL Comprehensive Metabolic Panel 05/08/21 Range/Units 03:40 Sodium 138 (137-145) mmol/L Potassium 4.2 (3.5-5.1) mmol/L Chloride 105 (98-107) mmol/L Carbon Dioxide 26 (22-30) mmol/L BUN 18 H (7-17) mg/dL Creatinine 0.92 (0.52-1.04) mg/dL Glucose 111 H (74-99) mg/dL Calcium 9.1 (8.4-10.2) mg/dL AST 34 (14-36) U/L ALT 25 (4-34) U/L Alkaline Phosphatase 83 (38-126) U/L Total Protein 7.2 (6.3-8.2) g/dL Albumin 4.1 (3.5-5.0) g/dL Current Medications Generic Name Dose Route Start Last Admin Trade Name Freq PRN Reason Stop Dose Admin Sodium Chloride 1,000 mls @ 20 mls/hr 05/08/21 05:30 05/08/21 05:26 Saline 0.9% IV 20 mls/hr .Q24H ZAHEER Administration Nitroglycerin 0.4 mg 05/08/21 05:16 Nitroglycerin Sl Tabs 0.4 Mg Tab SUBLINGUAL Q5M PRN Chest Pain Intake and Output 05/07/21 05/08/21 05/08/21 22:59 06:59 14:59 Other: Weight 110.042 kg 05/08/21 03:40 05/08/21 03:40
[2021-05-08] MEDS ORDERED: WARFARIN 5 MG TAB PO SCH (21:00)
[2021-05-08] MEDS ORDERED: METOPROLOL TARTRATE 50 MG TAB PO SCH (21:00)
[2021-05-09] MEDS ORDERED: WARFARIN 2.5 MG TAB PO SCH (21:00)
== END 2021-05-08 12:30 | disposition home or self-care (01) ==
LOC: EC 03:23 → 6NMEDSUR 05:16
PROVIDERS: ADMIT Hospitalist; ATTEND Hospitalist
DX: R07.89 Other chest pain (principal); R42 Dizziness and giddiness; R11.0 Nausea; R07.2 Precordial pain; Z95.0 Presence of cardiac pacemaker; M79.7 Fibromyalgia; K21.9 Gastro-esophageal reflux disease without esophagitis; I10 Essential (primary) hypertension; I48.19 Other persistent atrial fibrillation; H93.19 Tinnitus, unspecified ear; I49.5 Sick sinus syndrome; M19.90 Unspecified osteoarthritis, unspecified site; H54.62 Unqualified visual loss, left eye, normal vision right eye; K44.9 Diaphragmatic hernia without obstruction or gangrene; M48.00 Spinal stenosis, site unspecified; I47.1 Supraventricular tachycardia; I47.2 Ventricular tachycardia; M47.9 Spondylosis, unspecified; E07.9 Disorder of thyroid, unspecified; R53.82 Chronic fatigue, unspecified; Z20.822 Contact with and (suspected) exposure to COVID-19; Z86.13 Personal history of malaria; Z87.440 Personal history of urinary (tract) infections; Z79.899 Other long term (current) drug therapy; Z79.01 Long term (current) use of anticoagulants; Z79.890 Hormone replacement therapy; Z88.4 Allergy status to anesthetic agent; Z88.1 Allergy status to other antibiotic agents; Z88.5 Allergy status to narcotic agent; Z88.2 Allergy status to sulfonamides; Z88.8 Allergy status to other drugs, medicaments and biological substances; Z91.048 Other nonmedicinal substance allergy status; Z90.49 Acquired absence of other specified parts of digestive tract; Z90.710 Acquired absence of both cervix and uterus; Z98.1 Arthrodesis status; Z80.9 Family history of malignant neoplasm, unspecified
CPT/HCPCS: 99285; 36415; 93005; 80053; 83735; 84484; 85025; 85610; 85730; 87635; 71045; G0378

== ENCOUNTER → 2021-08-21 | Outpatient (CLI) | payer MEDICARE, BC ==
[2021-08-21 18:52] LABS: HCT 42.3 % (37.2-46.3); MCH 32.9 pg (27.0-32.0); MCHC 33.1 g/dL (32.0-37.0); MCV 99.5 fL (80.0-97.0); Mean Platelet Volume 10.2 fL (9.5-12.2); NRBC Per 100 WBC 0 /100 WBCS (0.0-0.0); Platelet Count 270 X 10*3/uL (140-440); RBC 4.25 X 10*6/uL (4.10-5.20); RDW 13.5 % (11.5-14.5); WBC 9.85 X 10*3/uL (4.50-10.00)
[2021-08-21 18:56] LABS: African American GFR (CKD) 68.5 (60.0-200.0); Blood Urea Nitrogen 13.6 mg/dL (9.0-27.0); Non-African American GFR(CKD) 59.1 (60.0-200.0); Potassium 4.7 mmol/L (3.5-5.5)
[2021-08-21 21:40] LABS: INR 2.29 (0.90-1.11); Prothrombin Time 24.2 sec (9.9-11.9)
== END | disposition home or self-care (01) ==
LOC: LABPAT 11:54
PROVIDERS: ATTEND Internal Medicine Cardiovascular Disease
DX: Z01.812 Encounter for preprocedural laboratory examination (principal); T82.111A Breakdown (mechanical) of cardiac pulse generator (battery), initial encounter
CPT/HCPCS: 36415; 80051; 82565; 84520; 85027; 85610

== ENCOUNTER 2021-08-27 05:51 | Day surgery (SDC) | payer MEDICARE, BC ==
[2021-08-25 15:21] VITALS: BMI 35.9
[2021-08-27] MEDS ORDERED: SODIUM CHLORIDE 0.9% 1,000 ML IV SCH ×2 (05:58)
[2021-08-27] MEDS ORDERED: CLINDAMYCIN 600 MG in SODIUM CHLORIDE 0.9% 250 ML IRRIGATION PRN (06:00)
[2021-08-27] MEDS ORDERED: CLINDAMYCIN 900 MG in DEXTROSE 5% IN WATER 50 ML IVPB PRN ×2 (06:00)
[2021-08-27] MEDS ORDERED: SODIUM CHLORIDE 0.9% 500 ML 500 ML IV ONE (06:22)
[2021-08-27 06:47] VITALS: RESP 16; TEMP 97.9
[2021-08-27 07:22] LABS: INR 1.3 (<1.2); Prothrombin Time 13.7 sec (9.0-12.0)
[2021-08-27 07:23] LABS: Calcium 8.8 mg/dL (8.4-10.2); Potassium 4.5 mmol/L (3.5-5.1)
[2021-08-27 07:25] LABS: Basophils # (A) 0.1 k/uL (0-0.2); Basophils % (A) 1 %; Eosinophils # (A) 0.4 k/uL (0-0.7); Eosinophils % (A) 5 %; HCT 43.6 % (34.0-46.0); HGB 14.7 gm/dL (11.4-16.0); Lymphocytes # (A) 2.1 k/uL (1.0-4.8); Lymphocytes % (A) 27 %; MCHC 33.6 g/dL (31.0-37.0); MCV 101.3 fL (80.0-100.0); Macrocytosis Slight; Mean Platelet Volume 7.7; Monocytes # (A) 0.6 k/uL (0-1.0); Monocytes % (A) 8 %; Neutrophils # (A) 4.4 k/uL (1.3-7.7); Neutrophils % (A) 57 %; Platelet Count 296 k/uL (150-450); RBC 4.31 m/uL (3.80-5.40); RDW 13.8 % (11.5-15.5); WBC 7.7 k/uL (3.8-10.6)
[2021-08-27] MEDS ORDERED: fentaNYL (PF) 50 MCG/ML 2 ML AMP IV ONE (07:54)
[2021-08-27] MEDS ORDERED: MIDAZOLAM 2 MG/2 ML VIAL IV ONE (07:54)
[2021-08-27] MEDS ORDERED: fentaNYL (PF) 50 MCG/ML 2 ML AMP ONE (07:57)
[2021-08-27] MEDS ORDERED: LIDOCAINE 1% INJ 10MG/ML (30 ML VIAL-PF) SQ ONE (07:59)
[2021-08-27] MEDS ORDERED: ACETAMINOPHEN TAB 325 MG TAB PO PRN (08:30)
--- NOTE | 2021-08-27 08:42 | P.PCN ---
Date of Procedure: 08/27/21 Preoperative Diagnosis: Battery depletion Postoperative Diagnosis: The same Procedure(s) Performed: Generator change Description of Procedure: HISTORY: This is a 81-year-old female with history of sick sinus syndrome status post permanent pacemaker implantation who has reached [facility]. Patient is advised to have elective generator change. Patient was also complaining of hiccups suggestive of possible diaphragmatic tubulation. However testing during the procedure at high-voltage did not reveal any diaphragmatic stim ablation. CONSENT: I have discussed the risks and benefits as related to the above mentioned procedure and both sedation/analgesia as well as necessary blood product administration. The patient has indicated understanding and acceptance of the risks of the procedure discussed. PROCEDURE: Patient was brought to the lab in a fasting state. Patient was given IV Versed and fentanyl for sedation. The skin over the existing pulse generator was infiltrated with lidocaine. An incision was made in the skin and was deepened until the pectoral fascia was exposed. Hemostasis was obtained. The existing pulse generator was pulled out of the pocket. The leads were disconnected and were checked for thresholds. Conscious Sedation: Versed 1mg Fentanyl 50 micrograms Duration 27minutes THRESHOLDS: ATRIAL: . Patient is in atrial fibrillation. The impedance is 380 and the fibrillation waves of 0.5 mV VENTRICULAR: The minimal patient threshold is 1.5 V at pulse width of 0.6. The impedance is 494 THE LEADS: ATRIAL: This is manufactured by [employer]. The model number is [id number] and the serial number is [id number] VENTRICULAR: This is manufactured by [employer]. Model number is [id number] and the serial number is [id number] THE EXPLANTED DEVICE: This is manufactured by [employer]. Model number is [id number] and the serial number is [id number] THE NEW DEVICE: This is manufactured by [employer]. The model number is [id number] and the serial number is [id number] PROGRAMMING: Programmed to AAIR to DDDR mode. Minimal rate is 60 and maximum is 130. The output in the atrium is 2 V and in the ventricle is also 2 V The leads were then connected to a new pulse generator. Pacemaker seems to function normally. The pocket was irrigated with antibiotics. The pocket was closed in the usual fashion. Pectoral fascia was closed with 2-0 Prolene, the subcutaneous tissue was closed with 3-0 Prolene and the skin was closed with 4-0 Prolene. Patient tolerated the procedure well . Patient will be monitored on the telemetry unit for 2-3 hours. If stable patient be discharged home later today. PLAN: Patient is discharged home later today. She'll continue home medications including Coumadin. She will have PT and INR on Tuesday. Continue prophylactic antibiotics. Patient to keep the dressing dry until seen in the office. To report if there is any swelling, pain or bleeding from the site FALLOW UP: One week in the office
[2021-08-27 16:02] VITALS: BP 132/76; PULSE 77
== END 2021-08-27 12:44 | disposition home or self-care (01) ==
LOC: CATHEP 05:51
PROVIDERS: ATTEND Internal Medicine Cardiovascular Disease
DX: Z45.010 Encounter for checking and testing of cardiac pacemaker pulse generator [battery] (principal); I48.19 Other persistent atrial fibrillation; R06.6 Hiccough; I49.5 Sick sinus syndrome; Z82.49 Family history of ischemic heart disease and other diseases of the circulatory system; Z20.822 Contact with and (suspected) exposure to COVID-19; Z79.01 Long term (current) use of anticoagulants; Z79.899 Other long term (current) drug therapy; Z88.4 Allergy status to anesthetic agent; Z88.1 Allergy status to other antibiotic agents; Z88.8 Allergy status to other drugs, medicaments and biological substances; Z88.6 Allergy status to analgesic agent; Z88.5 Allergy status to narcotic agent
CPT/HCPCS: 33228; 80048; 85025; 85610; 87635; C1785; J2250; J2001; J3010

== ENCOUNTER → 2021-11-03 | Outpatient (CLI) | payer MEDICARE, BC ==
[2021-11-03 18:32] LABS: African American GFR (CKD) 65.1 (60.0-200.0); Anion Gap 10.2 mmol/L (10.00-18.00); Blood Urea Nitrogen 13.1 mg/dL (9.0-27.0); Carbon Dioxide 25.9 mmol/L (20.0-27.5); Non-African American GFR(CKD) 56.2 (60.0-200.0); Potassium 4.6 mmol/L (3.5-5.5)
[2021-11-03 19:14] LABS: HCT 42.4 % (37.2-46.3); HGB 13.6 g/dL (12.0-15.0); MCH 32.5 pg (27.0-32.0); MCHC 32.1 g/dL (32.0-37.0); MCV 101.4 fL (80.0-97.0); Mean Platelet Volume 10.4 fL (9.5-12.2); NRBC Per 100 WBC 0 /100 WBCS (0.0-0.0); Platelet Count 258 X 10*3/uL (140-440); RBC 4.18 X 10*6/uL (4.10-5.20); RDW 13.5 % (11.5-14.5); WBC 11.23 X 10*3/uL (4.50-10.00)
== END | disposition home or self-care (01) ==
LOC: LABPAT 11:45
PROVIDERS: ATTEND Internal Medicine Clinical Cardiac Electrophysiology
DX: Z01.812 Encounter for preprocedural laboratory examination (principal); I48.19 Other persistent atrial fibrillation; I49.5 Sick sinus syndrome
CPT/HCPCS: 80051; 82565; 84520; 85027

== ENCOUNTER → 2022-12-07 | Outpatient (CLI) | payer MEDICARE, BC ==
--- NOTE | 2022-12-07 14:01 | US ---
EXAMINATION TYPE: US venous doppler duplex LE DATE OF EXAM: 12/07/2022 1:50 PM COMPARISON: NONE CLINICAL INDICATION: Female, 82 years old with history of R60.0 LOCALIZED EDEMA; pain SIDE PERFORMED: Bilateral TECHNIQUE: The lower extremity deep venous system is examined utilizing real time linear array sonog chencho with graded compression, doppler sonography and color-flow sonography. VESSELS IMAGED: Common Femoral Vein Deep Femoral Vein Greater Saphenous Vein * Femoral Vein Popliteal Vein Small Saphenous Vein * Proximal Calf Veins (* superficial vessels) Right Leg: Negative for DVT Left Leg: Negative for DVT Anechoic area medial left knee 4.3 x 2.8 x .5 cm. IMPRESSION: Grayscale, color doppler, spectral doppler imaging performed of the deep veins of the lo wer extremities. There is normal flow, compressibility, vascular waveforms. 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
== END | disposition home or self-care (01) ==
LOC: RADUSWWP 13:08
PROVIDERS: ATTEND Family Medicine
DX: R60.0 Localized edema (principal)
CPT/HCPCS: 93970

== ENCOUNTER → 2023-01-21 | Outpatient (CLI) | payer MEDICARE, BC ==
--- NOTE | 2023-01-21 11:00 | US ---
EXAMINATION TYPE: US kidneys/renal and bladder DATE OF EXAM: 01/21/2023 COMPARISON: NONE CLINICAL INDICATION: Female, 83 years old with history of N39.0 URINARY TRACT INFECTION, SITE NOT SPE CIFIED; recent UTI EXAM MEASUREMENTS: Right Kidney: 9.1 x 3.6 x 4.5 cm Left Kidney: 9.2 x 3.7 x 5.8 cm Right Kidney: No hydronephrosis or masses seen Left Kidney: No hydronephrosis or masses seen Bladder: wnl There is no evidence for hydronephrosis at this point in time. No nephrolithiasis is seen. No erlin s are identified. The urinary bladder is anechoic. Bilateral ureteral jets are seen. IMPRESSION: No significant abnormality appreciated.
== END | disposition home or self-care (01) ==
LOC: RADUSWWP 09:32
PROVIDERS: ATTEND Family Medicine
DX: N39.0 Urinary tract infection, site not specified (principal)
CPT/HCPCS: 76770

== ENCOUNTER 2023-04-10 00:12 | Observation (INO) | payer MEDICARE, BC ==
--- NOTE | 2023-04-10 00:42 | ED ---
Chest Pain HPI - General Source: patient Mode of arrival: ambulatory Limitations: no limitations <Merrick Rojas - Last Filed: 04/10/23 00:41> - General Source: patient, RN notes reviewed, old records reviewed <Damian Lamar - Last Filed: 04/10/23 03:39> - General Chief Complaint: Chest Pain Stated Complaint: Chest pain Time Seen by Provider: 04/10/23 00:41 - History of Present Illness Initial Comments: 83-year-old female presenting with chest pain that started this evening. Squeezing sensation to the left side of the chest. Admits to shortness of breath with exertion. (Merrick Rojas) Patient is an 83-year-old female with past medical history remarkable for A. fib with a pacemaker, fibromyalgia, hypertension who presents emergency Department complaining of chest pain. States she was lying down this evening when she experienced a squeezing sensation that is painful over the left side of her chest. Presents for further evaluation at this time with both of her sons. States she has had this pain intermittently over the last few days to weeks. No history cardiac stents. Is on Coumadin. States pain is nearly resolved at this time, approximately 2 out of 10. Nurse's occasional nausea with the pain. Did see her hair colorist Dr. High this week and had some medication changes and is concerned this may have contributed to her current symptoms. (Damian Lamar) - Related Data Home Medications Medication Instructions Recorded Confirmed Nitroglycerin Sl Tabs [Nitrostat] 0.4 mg SL Q5M PRN 03/21/14 11/17/21 Warfarin [Coumadin] 5 mg PO SUMOWETHFR 03/21/14 11/19/21 Ascorbic Acid [Vitamin C] 1,000 mg PO DAILY 03/17/20 11/19/21 Famotidine [Pepcid] 20 mg PO BID PRN 03/17/20 11/17/21 Flecainide [Tambocor] 100 mg PO BID 03/17/20 11/19/21 Levothyroxine Sodium [Synthroid] 50 mcg PO AC-[id number] 03/17/20 11/19/21 Zinc Gluconate [Zinc] 50 mg PO DAILY 03/17/20 11/19/21 Warfarin [Coumadin] 2.5 mg PO TUSA 06/09/20 11/19/21 Magnesium Oxide [Mag-Ox] 400 mg PO DAILY 05/08/21 11/19/21 Acetaminophen Tab [Tylenol] 1,000 mg PO DIRECTED PRN 08/25/21 11/19/21 Cholecalciferol [Vitamin D3 (125 125 mcg PO DAILY 08/25/21 11/19/21 Mcg = 5000 Iu)] Meclizine [Antivert] 25 mg PO DIRECTED PRN 08/25/21 11/17/21 Previous Rx's Medication Instructions Recorded Metoprolol Tartrate [Lopressor] 50 mg PO BID 30 Days #60 tab 05/08/21 Allergies Allergy/AdvReac Type Severity Reaction Status Date / Time doxycycline Allergy Severe Rash/Hives Verified 04/10/23 00:24 hydrocodone bitartrate Allergy Severe Itching Verified 04/10/23 00:24 [From Lortab] levofloxacin [From Levaquin] Allergy Severe Rash & Verified 04/10/23 00:24 joint pain adhesive tape Allergy Itching Verified 04/10/23 00:24 bacitracin [From Cortisporin] Allergy Itching Verified 04/10/23 00:24 bacitracin zinc Allergy Itching Verified 04/10/23 00:24 [From Cortisporin] cephalexin monohydrate Allergy Rash and Verified 04/10/23 00:24 [From Keflex] stomach problems ciprofloxacin Allergy Rash/Hives Verified 04/10/23 00:24 esomeprazole [From Nexium] Allergy blurred Verified 04/10/23 00:24 vision hydrocortisone Allergy Itching Verified 04/10/23 00:24 [From Cortisporin] iodine Allergy Unknown Verified 04/10/23 00:24 liotrix [From Thyrolar-1/4] Allergy Rapid Verified 04/10/23 00:24 Heart Rate, sob,severe back pain neomycin [From Cortisporin] Allergy Itching Verified 04/10/23 00:24 neomycin sulfate Allergy Itching Verified 04/10/23 00:24 [From Cortisporin] omeprazole Allergy facial Verified 04/10/23 00:24 swelling oxycodone HCl [From Percocet] Allergy sob,dizzy Verified 04/10/23 00:24 & drugged feeling polymyxin B Allergy Itching & Verified 04/10/23 00:24 swelling of the eyes tetracycline Allergy Pt told by Verified 04/10/23 00:24 Pharmacist never to take r/t other allergies tramadol HCl [From Ultram] Allergy Nausea & Verified 04/10/23 00:24 SOB clonidine AdvReac Severe extreme Verified 04/10/23 00:24 dizziness & faint erythromycin base AdvReac Severe nausea,diarrhea,vertigo,stomach Verified 04/10/23 00:24 problems indomethacin [From Indocin] AdvReac Severe Hallucinations,severe Verified 04/10/23 00:24 MYERS indomethacin sodium AdvReac Severe Hallucinations,severe Verified 04/10/23 00:24 [From Indocin] MYERS isosorbide AdvReac Severe severe Verified 04/10/23 00:24 headache,dizziness & diarrhea morphine AdvReac Severe Nausea & Verified 04/10/23 00:24 Vomiting naproxen [From Naprosyn] AdvReac Severe Severe Verified 04/10/23 00:24 Headache sulindac [From Clinoril] AdvReac Severe Nausea Verified 04/10/23 00:24 tolmetin sodium AdvReac Severe Nausea Verified 04/10/23 00:24 [From Tolectin] allopurinol AdvReac heart Verified 04/10/23 00:24 fluttering bupivacaine HCl AdvReac joint pain Verified 04/10/23 00:24 [From Marcaine] clarithromycin AdvReac Diarrhea Verified 04/10/23 00:24 codeine AdvReac Nausea Verified 04/10/23 00:24 dexamethasone AdvReac Severe Verified 04/10/23 00:24 headache & drugged feeling dexamethasone sod phosphate AdvReac Severe Verified 04/10/23 00:24 [From Decadron] headache & drugged feeling estradiol AdvReac Painful Verified 04/10/23 00:24 arms, spine & breasts gabapentin [From Neurontin] AdvReac "off Verified 04/10/23 00:24 balance" ibuprofen [From Motrin] AdvReac Rapid Verified 04/10/23 00:24 Heart Rate latex AdvReac Itching Verified 04/10/23 00:24 lisinopril AdvReac dizziness Verified 04/10/23 00:24 metoclopramide HCl AdvReac Nausea-Stomach Verified 04/10/23 00:24 [From Reglan] problems polymyxin B sulfate AdvReac Itching Verified 04/10/23 00:24 [From Cortisporin] pregabalin [From Lyrica] AdvReac Weight Verified 04/10/23 00:24 gain & blurry vision propafenone AdvReac severe Verified 04/10/23 00:24 diarrhea, itchy, shellfish derived AdvReac Joint and Verified 04/10/23 00:24 Body Pain spironolactone AdvReac Internal Verified 04/10/23 00:24 [From Aldactone] itching ,extreme dizziness sulfamethoxazole AdvReac Severe Verified 04/10/23 00:24 [From Bactrim] joint pain trimethoprim [From Bactrim] AdvReac Severe Verified 04/10/23 00:24 joint pain Hexadrol AdvReac Severe Uncoded 04/10/23 00:24 headache & drugged feeling spectro-abel AdvReac Frozen Uncoded 04/10/23 00:24 face for several days after Review of Systems ROS Other: All systems not noted in ROS Statement are negative. <Merrick Rojas - Last Filed: 04/10/23 00:41> ROS Other: All systems not noted in ROS Statement are negative. <Damian Lamar - Last Filed: 04/10/23 03:39> ROS Statement: Those systems with pertinent positive or pertinent negative responses have been documented in the HPI. Review of Systems: CONST: Denies fever EYES: Denies blurry vision ENT: Denies nasal congestion C/V: Endorses slight left-sided chest pain. RESP: Denies shortness of breath GI: Denies abdominal pain : Denies dysuria SKIN: Denies rash. MSK: Denies joint pain. NEURO: Denies headache (Damian Lamar) EKG Findings - EKG Comments: EKG Findings:: 12-lead Electrocardiogram Interpretation Note. EKG was reviewed and interpreted by myself. 12-lead ECG performed at 0034 is interpreted by me as revealing atrially paced rhythm at a rate of 74 beats per minute. [place] is normal. [place] interval is 293 ms, QTc is 418 ms. QRS duration is 102 ms.. There were no ST or T wave abnormalities to suggest myocardial ischemia or injury. R wave progression across the precordium was satisfactory. By my interpretation this EKG is non-diagnostic for acute ischemia. - EKG Results: EKG: interpreted by ERMD <Damian Lamar - Last Filed: 04/10/23 03:39> Past Medical History Past Medical History: Atrial Fibrillation, Eye Disorder, Fibromyalgia, GERD/Reflux, Hypertension, Osteoarthritis (OA), Thyroid Disorder Additional Past Medical History / Comment(s): Got J&J Vaccine. Blind in left eye, hiatal hernia, UTI's, hx ventricular tachycardia, spinal stenosis, spondylosis, hx right eye retinal tear-laser repair in office. Hx Malaria. "Liver attacks, when younger, lived in [place]." Chronic fatigue. "Have lots of trouble with left arm and shoulder". vertigo History of Any Multi-Drug Resistant Organisms: None Reported Past Surgical History: Appendectomy, Back Surgery, Cardiac Ablation, Cholecystectomy, Heart Catheterization, Hysterectomy, Orthopedic Surgery, Pacemaker, Tonsillectomy Additional Past Surgical History / Comment(s): [employer]tronic Pacemaker, left knee arthroscopy, right leg swelling drained, lower spine surgery, laminectomy and fusion, left eye surgery X2, Past Anesthesia/Blood Transfusion Reactions: Motion Sickness, Postoperative Nausea & Vomiting (PONV) Type of Cardiac Device: Permanent Pacemaker Device Placement Date:: 2011 Past Psychological History: No Psychological Hx Reported Smoking Status: Never smoker Past Alcohol Use History: Rare - Past Family History Mother Family Medical History: Cancer Brother(s) Family Medical History: Cancer Sister(s) Family Medical History: Cancer <Merrick Rojas - Last Filed: 04/10/23 00:41> General Exam Limitations: no limitations <Merrick Rojas - Last Filed: 04/10/23 00:41> <Damian Lamar - Last Filed: 04/10/23 03:39> - General Exam Comments Initial Comments: Visual Physical Exam Vital signs reviewed General: Well-appearing, nontoxic, no acute distress. Head: Normocephalic, atraumatic Eyes: PERRLA, EOMI ENT: Airway patent Chest: Nonlabored breathing Skin: No visual rash, normal skin tone Neuro: Alert and oriented 3 Musculoskeletal: No gross abnormalities (Merrick Rojas) General: Appears in no acute distress. HEAD: Normal with no signs of head trauma. EYES: PERRLA, EOMI, conjunctiva normal, no discharge. ENT: Hearing grossly intact, normal oropharynx. RESPIRATORY: Clear breath sounds bilaterally. No wheezes, rales, or rhonchi. C/V: Regular rate and rhythm. S1 and S2 auscultated, no edema, peripheral pulses 2+ and intact throughout ABD: Abd is soft, nontender, nondistended EXT: Normal range of motion, no obvious deformity SKIN: No rashes or lesions observed on exposed skin. NEURO: Alert and oriented x 4. Cranial nerves II-XII intact. No focal sensory or strength deficits. (WillardDamian) Course Vital Signs 04/10/23 04/10/23 00:20 02:41 Temperature 98.7 F Pulse Rate 70 65 Respiratory 18 18 Rate Blood Pressure 181/76 192/83 O2 Sat by Pulse 95 95 Oximetry Chest Pain MDM <Damian Lamar - Last Filed: 04/10/23 03:39> - MDM Was pt. sent in by a medical professional or institution (Dr. PA, FLORAL DEPARTMENT SPECIALIST, urgent care, hospital, or custodial...) When possible be specific @ -No Did you speak to anyone other than the patient for history (EMS, parent, family, police, friend...)? What history was obtained from this source @ -No Did you review nursing and triage notes (agree or disagree)? Why? @ -I reviewed and agree with nursing and triage notes Were old charts reviewed (outside hosp., previous admission, EMS record, old EKG, old radiological studies, urgent care reports/EKG's, custodial records)? Report findings @ -Old charts reviewed Differential Diagnosis (chest pain, altered mental status, abdominal pain women, abdominal pain men, vaginal bleeding, weakness, fever, dyspnea, syncope, headache, dizziness, GI bleed, back pain, seizure, CVA, palpatations, mental health, musculoskeletal)? @ -Differential Chest Pain: Stable Angina, Unstable Angina, STEMI, NSTEMI Aortic Dissection, Pneumothorax, Musculoskeletal, Esophageal Spasm GERD, Cholecystitis, Pancreatitis, Zoster, this is not meant to be an all-inclusive list. EKG interpreted by me (3pts min.). @ -As above X-rays interpreted by me (1pt min.). @ -Chest x-ray reveals no obvious acute cardio pulmonary process. CT interpreted by me (1pt min.). @ -None done U/S interpreted by me (1pt. min.). @ -None done What testing was considered but not performed or refused? (CT, X-rays, U/S, labs)? Why? @ -None What meds were considered but not given or refused? Why? @ -Discussed Nitropaste however patient declines at this time. We'll continue to monitor and administer if needed. Did you discuss the management of the patient with other professionals (professionals i.e. , PA, FLORAL DEPARTMENT SPECIALIST, lab, RT, psych nurse, social sciences chair, epic specialist, teacher, jail officer, egg caser)? Give summary @ -No Was smoking cessation discussed for >3mins.? @ -No Was critical care preformed (if so, how long)? @ -No Were there social determinants of health that impacted care today? How? (Homelessness, low income, unemployed, alcoholism, drug addiction, transportation, low edu. Level, literacy, decrease access to med. care, detention, rehab)? @ -No Was there de-escalation of care discussed even if they declined (Discuss DNR or withdrawal of care, Hospice)? DNR status @ -No What co-morbidities impacted this encounter? (DM, HTN, Smoking, COPD, CAD, Cancer, CVA, ARF, Chemo, Hep., AIDS, mental health diagnosis, sleep apnea, morbid obesity)? @ -None Was patient admitted / discharged? Hospital course, mention meds given and route, prescriptions, significant lab abnormalities, going to OR and other pertinent info. @ -Based on the patient's presentation and physical exam, patient presents complaining of chest pain. I evaluated the patient and she was placed in a room. Pain is nearly controlled at this time. We will administer a dose of nitro. She also receive 324 mgs of aspirin. Workup was complete and triage revealed a subtherapeutic INR, as well as an undetectable troponin. EKG shows no signs of acute ischemia. Chest x-ray unremarkable. I discussed results with the patient. She expressed understanding. I would like to admitted to the hospital to observation telemetry. She was in agreement this plan. Cardiology consulted. Patient's pain is resolved with nitro administration however I did offer nitro paste which was declined at this time but she is open to it of pain comes back. She was in agreement with this plan. I spoke with the admitting team, JONNY Ornelas of [facility] who accepted the patient. Undiagnosed new problem with uncertain prognosis? @ -No Drug Therapy requiring intensive monitoring for toxicity (Heparin, Nitro, Insulin, Cardizem)? @ -No Were any procedures done? @ -No Diagnosis/symptom? @ -Chest pain Acute, or Chronic, or Acute on Chronic? @ -Acute Uncomplicated (without systemic symptoms) or Complicated (systemic symptoms)? @ -Complicated Side effects of treatment? @ -No Exacerbation, Progression, or Severe Exacerbation? @ -No Poses a threat to life or bodily function? How? (Chest pain, [place], [place], pneumonia, PE, COPD, DKA, ARF, appy, cholecystitis, CVA, Diverticulitis, Homicidal, Suicidal, threat to staff... and all critical care pts) @ -Yes (Damian Lamar) Disposition <Merrick Rojas - Last Filed: 04/10/23 00:41> Time of Disposition: 03:30 <Damian Lamar - Last Filed: 04/10/23 03:39> Clinical Impression: Chest pain, Subtherapeutic international normalized ratio (INR) Disposition: ADMITTED IP TO THIS HOSP Condition: Stable
[2023-04-10 01:42] LABS: Basophils # (A) 0.1 k/uL (0-0.2); Basophils % (A) 1 %; Eosinophils # (A) 0.3 k/uL (0-0.7); Eosinophils % (A) 3 %; HCT 40.5 % (34.0-46.0); HGB 13.3 gm/dL (11.4-16.0); Lymphocytes # (A) 2.3 k/uL (1.0-4.8); Lymphocytes % (A) 22 %; MCH 33.6 pg (25.0-35.0); MCHC 32.9 g/dL (31.0-37.0); MCV 102.1 fL (80.0-100.0); Macrocytosis Slight; Mean Platelet Volume 7.3; Monocytes # (A) 0.8 k/uL (0-1.0); Monocytes % (A) 8 %; Neutrophils # (A) 6.4 k/uL (1.3-7.7); Neutrophils % (A) 63 %; Platelet Count 274 k/uL (150-450); RBC 3.97 m/uL (3.80-5.40); RDW 13.7 % (11.5-15.5); WBC 10.1 k/uL (3.8-10.6)
[2023-04-10 01:52] LABS: ALT 23 U/L (4-34); African American GFR (CKD) 70 (>60 ml/min/1.73 sqM); Anion Gap 8 mmol/L; Blood Urea Nitrogen 16 mg/dL (7-17); Calcium 9.1 mg/dL (8.4-10.2); Carbon Dioxide 25 mmol/L (22-30); Chloride 104 mmol/L (98-107); Glucose 93 mg/dL (74-99); Non-African American GFR(CKD) 61 (>60 ml/min/1.73 sqM); Sodium 137 mmol/L (137-145); Total Bilirubin 0.7 mg/dL (0.2-1.3)
[2023-04-10 01:56] LABS: AST 36 U/L (14-36); Alkaline Phosphatase 89 U/L (38-126); Magnesium 2.2 mg/dL (1.6-2.3); Potassium 4.9 mmol/L (3.5-5.1); Total Protein 7.2 g/dL (6.3-8.2)
[2023-04-10 02:04] LABS: INR 1.6 (<1.2); Partial Thromboplastin Time 26.9 sec (22.0-30.0); Prothrombin Time 16.1 sec (10.0-12.5)
[2023-04-10] MEDS ORDERED: ASPIRIN 81 MG PO STA (02:29)
[2023-04-10] MEDS ORDERED: NITROGLYCERIN SL TABS 0.4 MG TAB SUBLINGUAL STA (02:29)
[2023-04-10] MEDS ORDERED: NALOXONE 0.4 MG/ML 1 ML VIAL IV PRN ×2 (02:41→09:33)
--- NOTE | 2023-04-10 07:07 | XR ---
EXAM: XR Chest, 2 Views CLINICAL HISTORY: ITS.REASON XR Reason: Chest Pain TECHNIQUE: Frontal and lateral views of the chest. COMPARISON: No relevant prior studies available. FINDINGS: Lungs: Mild left basilar subsegmental atelectasis/scarring. Pleural space: Unremarkable. No pneumothorax. Heart: No cardiomegaly. Bones/joints: Scoliosis. Tubes, lines and devices: Left chest wall pacer. IMPRESSION: No acute findings in the chest.
[2023-04-10] MEDS ORDERED: MELATONIN 3 MG TABLET PO PRN (09:33)
[2023-04-10] MEDS ORDERED: MAG HYDROX/AL HYDROX/SIMETH 30 ML CUP PO PRN (09:33)
[2023-04-10] MEDS ORDERED: ACETAMINOPHEN TAB 325 MG TAB PO PRN (09:33)
[2023-04-10] MEDS ORDERED: HYDROcodone/APAP 5-325MG 1 EACH TAB PO PRN (09:33)
[2023-04-10] MEDS ORDERED: ONDANSETRON 4 MG/2 ML VIAL IVP PRN (09:33)
--- NOTE | 2023-04-10 12:47 | P.HPIM ---
History of Present Illness H&P Date: 04/10/23 History of present illness; patient is a 83-year-old lady with past medical his tory significant for atrial fibrillation, hypertension, sick sinus syndrome was brought to the ER for chest pain. Patient was all right last night when while going to go to sleep she started noticing severe left-sided chest pain that was squeezing in nature, intermittent nature, nonradiating, no aggravating or relieving factors associated with this chest pain. Denies any shortness of breath or palpitation at that time. There was no complain of nausea, vomiting abdominal pain. Because of chest pain, patient came to the ER Initial lab work done in the ER showed WBC 10.1, hemoglobin 13.3, platelet count 274, sodium 137 potassium 4.9, BUN 16, creatinine 0.88, GFR 70 troponin 0.012, AST 36, AST 23, calcium 9.1 EKG done in the ER showed heart rate of 74 , no ST segment elevation or depression seen, no T-wave inversions seen. Chest x-ray done in the ER showed no acute cardiopulmonary process Patient admitted to internal medicine service REVIEW OF SYSTEMS: CONSTITUTIONAL: No fever, no malaise, no fatigue. HEENT: No recent visual problems or hearing problems. Denied any sore throat. CARDIOVASCULAR: As mentioned in HPI PULMONARY: Mentioned in HPI GASTROINTESTINAL: No diarrhea, no nausea, no vomiting, no abdominal pain. NEUROLOGICAL: No headaches, no weakness, no numbness. HEMATOLOGICAL: Denies any bleeding or petechiae. GENITOURINARY: Denies any burning micturition, frequency, or urgency. MUSCULOSKELETAL/RHEUMATOLOGICAL: Denies any joint pain, swelling, or any muscle pain. ENDOCRINE: Denies any polyuria or polydipsia. The rest of the 14-point review of systems is negative. PHYSICAL EXAMINATION: GENERAL: The patient is alert and oriented x3, not in any acute distress. Well developed, well nourished. HEENT: Pupils are round and equally reacting to light. EOMI. No scleral icterus. No conjunctival pallor. Normocephalic, atraumatic. No pharyngeal erythema. No th yromegaly. CARDIOVASCULAR: S1 and S2 present. No murmurs, rubs, or gallops. PULMONARY: Chest is clear to auscultation, no wheezing or crackles. ABDOMEN: Soft, nontender, nondistended, normoactive bowel sounds. No palpable organomegaly. MUSCULOSKELETAL: No joint swelling or deformity. EXTREMITIES: No cyanosis, clubbing, or pedal edema. NEUROLOGICAL: Gross neurological examination did not reveal any focal deficits. SKIN: No rashes. Assessment and plan Chest pain, atypical, rule out acute coronary syndrome Persistent atrial fibrillation on Coumadin Atrial tachycardia Hypertension Sick sinus syndrome status post dual-chamber pacemaker implantation in 2012 Monitor vital signs Monitor CBC Monitor CMP Continue telemetry monitoring Trend troponins Ordered lipid panel, HbA1c level Continue aspirin Resume home meds Consult cardiology Labs and medication were reviewed.. Continue same treatment. Continue with symptomatic treatment. Resume home medication. Monitor labs and vitals. DVT and GI prophylaxis. Further recommendations as per clinical course of the patient Dictation was produced using [employer] dictation software. please excuse any grammatical, word or spelling errors. Past Medical History Past Medical History: Atrial Fibrillation, Eye Disorder, Fibromyalgia, GERD/Reflux, Hypertension, Osteoarthritis (OA), Thyroid Disorder Additional Past Medical History / Comment(s): Got J&J Vaccine. Blind in left eye, hiatal hernia, UTI's, hx ventricular tachycardia, spinal stenosis, spondylosis, hx right eye retinal tear-laser repair in office. Hx Malaria. "Liver attacks, when younger, lived in [place]." Chronic fatigue. "Have lots of trouble with left arm and shoulder". vertigo History of Any Multi-Drug Resistant Organisms: None Reported Past Surgical History: Appendectomy, Back Surgery, Cardiac Ablation, Cholecystectomy, Heart Catheterization, Hysterectomy, Orthopedic Surgery, Pacemaker, Tonsillectomy Additional Past Surgical History / Comment(s): Medtronic Pacemaker, left knee arthroscopy, right leg swelling drained, lower spine surgery, laminectomy and fusion, left eye surgery X2, Past Anesthesia/Blood Transfusion Reactions: Motion Sickness, Postoperative Nausea & Vomiting (PONV) Type of Cardiac Device: Permanent Pacemaker Device Placement Date:: 2011 Past Psychological History: No Psychological Hx Reported Smoking Status: Never smoker Past Alcohol Use History: Rare Past Drug Use History: None Reported - Past Family History Mother Family Medical History: Cancer Brother(s) Family Medical History: Cancer Sister(s) Family Medical History: Cancer Medications and Allergies Home Medications Medication Instructions Recorded Confirmed Type Nitroglycerin Sl Tabs [Nitrostat] 0.4 mg SL Q5M PRN 03/21/14 11/17/21 History Warfarin [Coumadin] 5 mg PO SUMOWETHFR 03/21/14 11/19/21 History Ascorbic Acid [Vitamin C] 1,000 mg PO DAILY 03/17/20 11/19/21 History Famotidine [Pepcid] 20 mg PO BID PRN 03/17/20 11/17/21 History Flecainide [Tambocor] 100 mg PO BID 03/17/20 11/19/21 History Levothyroxine Sodium [Synthroid] 50 mcg PO AC-BRKFST 03/17/20 11/19/21 History Zinc Gluconate [Zinc] 50 mg PO DAILY 03/17/20 11/19/21 History Warfarin [Coumadin] 2.5 mg PO TUSA 06/09/20 11/19/21 History Magnesium Oxide [Mag-Ox] 400 mg PO DAILY 05/08/21 11/19/21 History Metoprolol Tartrate [Lopressor] 50 mg PO BID 30 Days #60 tab 05/08/21 11/19/21 Rx Acetaminophen Tab [Tylenol] 1,000 mg PO DIRECTED PRN 08/25/21 11/19/21 History Cholecalciferol [Vitamin D3 (125 125 mcg PO DAILY 08/25/21 11/19/21 History Mcg = 5000 Iu)] Meclizine [Antivert] 25 mg PO DIRECTED PRN 08/25/21 11/17/21 History Allergies Allergy/AdvReac Type Severity Reaction Status Date / Time doxycycline Allergy Severe Rash/Hives Verified 04/10/23 00:24 hydrocodone bitartrate Allergy Severe Itching Verified 04/10/23 00:24 [From Lortab] levofloxacin [From Levaquin] Allergy Severe Rash & Verified 04/10/23 00:24 joint pain adhesive tape Allergy Itching Verified 04/10/23 00:24 bacitracin [From Cortisporin] Allergy Itching Verified 04/10/23 00:24 bacitracin zinc Allergy Itching Verified 04/10/23 00:24 [From Cortisporin] cephalexin monohydrate Allergy Rash and Verified 04/10/23 00:24 [From Keflex] stomach problems ciprofloxacin Allergy Rash/Hives Verified 04/10/23 00:24 esomeprazole [From Nexium] Allergy blurred Verified 04/10/23 00:24 vision hydrocortisone Allergy Itching Verified 04/10/23 00:24 [From Cortisporin] iodine Allergy Unknown Verified 04/10/23 00:24 liotrix [From Thyrolar-1/4] Allergy Rapid Verified 04/10/23 00:24 Heart Rate, sob,severe back pain neomycin [From Cortisporin] Allergy Itching Verified 04/10/23 00:24 neomycin sulfate Allergy Itching Verified 04/10/23 00:24 [From Cortisporin] omeprazole Allergy facial Verified 04/10/23 00:24 swelling oxycodone HCl [From Percocet] Allergy sob,dizzy Verified 04/10/23 00:24 & drugged feeling polymyxin B Allergy Itching & Verified 04/10/23 00:24 swelling of the eyes tetracycline Allergy Pt told by Verified 04/10/23 00:24 Pharmacist never to take r/t other allergies tramadol HCl [From Ultram] Allergy Nausea & Verified 04/10/23 00:24 SOB clonidine AdvReac Severe extreme Verified 04/10/23 00:24 dizziness & faint erythromycin base AdvReac Severe nausea,diarrhea,vertigo,stomach Verified 04/10/23 00:24 problems indomethacin [From Indocin] AdvReac Severe Hallucinations,severe Verified 04/10/23 00:24 MYERS indomethacin sodium AdvReac Severe Hallucinations,severe Verified 04/10/23 00:24 [From Indocin] MYERS isosorbide AdvReac Severe severe Verified 04/10/23 00:24 headache,dizziness & diarrhea morphine AdvReac Severe Nausea & Verified 04/10/23 00:24 Vomiting naproxen [From Naprosyn] AdvReac Severe Severe Verified 04/10/23 00:24 Headache sulindac [From Clinoril] AdvReac Severe Nausea Verified 04/10/23 00:24 tolmetin sodium AdvReac Severe Nausea Verified 04/10/23 00:24 [From Tolectin] allopurinol AdvReac heart Verified 04/10/23 00:24 fluttering bupivacaine HCl AdvReac joint pain Verified 04/10/23 00:24 [From Marcaine] clarithromycin AdvReac Diarrhea Verified 04/10/23 00:24 codeine AdvReac Nausea Verified 04/10/23 00:24 dexamethasone AdvReac Severe Verified 04/10/23 00:24 headache & drugged feeling dexamethasone sod phosphate AdvReac Severe Verified 04/10/23 00:24 [From Decadron] headache & drugged feeling estradiol AdvReac Painful Verified 04/10/23 00:24 arms, spine & breasts gabapentin [From Neurontin] AdvReac "off Verified 04/10/23 00:24 balance" ibuprofen [From Motrin] AdvReac Rapid Verified 04/10/23 00:24 Heart Rate latex AdvReac Itching Verified 04/10/23 00:24 lisinopril AdvReac dizziness Verified 04/10/23 00:24 metoclopramide HCl AdvReac Nausea-Stomach Verified 04/10/23 00:24 [From Reglan] problems polymyxin B sulfate AdvReac Itching Verified 04/10/23 00:24 [From Cortisporin] pregabalin [From Lyrica] AdvReac Weight Verified 04/10/23 00:24 gain & blurry vision propafenone AdvReac severe Verified 04/10/23 00:24 diarrhea, itchy, shellfish derived AdvReac Joint and Verified 04/10/23 00:24 Body Pain spironolactone AdvReac Internal Verified 04/10/23 00:24 [From Aldactone] itching ,extreme dizziness sulfamethoxazole AdvReac Severe Verified 04/10/23 00:24 [From Bactrim] joint pain trimethoprim [From Bactrim] AdvReac Severe Verified 04/10/23 00:24 joint pain Hexadrol AdvReac Severe Uncoded 04/10/23 00:24 headache & drugged feeling spectro-abel AdvReac Frozen Uncoded 04/10/23 00:24 face for several days after Physical Exam Vitals: Vital Signs Temp Pulse Pulse Resp BP BP BP 04/10/23 07:30 97.5 F L 63 20 160/78 04/10/23 06:49 65 17 166/80 04/10/23 06:13 66 144/74 04/10/23 05:12 71 183/81 04/10/23 04:30 97.6 F 77 16 182/95 199/84 04/10/23 04:00 57 L 18 158/70 04/10/23 03:30 62 20 157/70 04/10/23 02:41 65 18 192/83 04/10/23 00:20 98.7 F 70 18 181/76 Pulse Ox 04/10/23 07:30 99 04/10/23 06:49 99 04/10/23 06:13 04/10/23 05:12 04/10/23 04:30 97 04/10/23 04:00 96 04/10/23 03:30 96 04/10/23 02:41 95 04/10/23 00:20 95 Intake and Output 04/09/23 04/10/23 04/10/23 22:59 06:59 14:59 Other: # Voids 1 Weight 102.058 kg Results CBC & Chem 7: 04/10/23 01:12 04/10/23 01:12 Labs: Abnormal Lab Results - Last 24 Hours (Table) 04/10/23 04/10/23 Range/Units 01:12 01:12 MCV 102.1 H (80.0-100.0) fL PT 16.1 H (10.0-12.5) sec INR 1.6 H (<1.2) Thrombosis Risk Factor Assmnt - Choose All That Apply Any of the Below Risk Factors Present?: Yes Each Factor Represents 1 point: Obesity (BMI >25) Each Risk Factor Represents 3 Points: Age 75 years or older Other congenital or acquired thrombophilia - If yes, enter type in comment: No Thrombosis Risk Factor Assessment Total Risk Factor Score: 4 Thrombosis Risk Factor Assessment Level: Moderate Risk
[2023-04-10 14:44] VITALS: BP 133/74; PULSE 60; RESP 16; TEMP 98
--- NOTE | 2023-04-10 15:05 | P.CRDCN ---
History of Present Illness Consult date: 04/10/23 History of present illness: HISTORY OF PRESENTING ILLNESS Patient is a 83-year-old female with past medical history of atrial fibrillation, hypertension, sick sinus syndrome status post Medtronic permanent pacemaker. Lately patient has been complaining of substernal chest heaviness like sensation for which she saw Dr. du. He intensified antianginal therapy by adding Imdur. Since taking them. Patient has been complaining of significant headaches, and therefore she stopped taking it. And decided to come to the ER. She does report that her chest pain gets better with sublingual nitroglycerin transiently. Her ECG showed atrial paced rhythm with no significant ST or T-wave changes diagnostic for ischemia. Her troponins were negative 3. Other labs are within normal limits. INR was 1.6 she is on warfarin for atrial fibrillation Results and noticed that her blood pressure has been slightly elevated, blood pressure 160/80. She reports that over last 1-2 weeks her blood pressure is higher than usual. REVIEW OF SYSTEMS 14 point review of system is negative except what is mentioned above in HPI. PHYSICAL EXAMINATION Vital signs reviewed. Head: Normocephalic. Eyes: Sclerae nonicteric. Neck: Brisk carotid upstroke, no jugular venous distention. Lungs: Clear to auscultation. Heart: Regular rate and rhythm, S1-S2, no S3, no murmur or rub. Abdomen: Soft nontender, positive bowel sounds no organomegaly. Extremities: No edema, intact distal pulses. Neuro: Alert, oritented, no focal deficits ASSESSMENT Substernal chest pain, likely stable angina, relieved with sublingual nitroglycerin Paroxysmal atrial fibrillation sinus syndrome status post permanent pacemaker Mildly subtherapeutic INR, INR 1.6 PLAN Patient is already scheduled for outpatient stress test for 20 April. We will continue the same plan. Intensive antianginals. Increase metoprolol to 100 mg twice a day from 75 mg twice a day Reduce imdur to 15 mg because of significant headaches at 30 mg dose Continue warfarin next and continue other cardiac medications next Patient was rule out of acute coronary syndrome. She is stable at this time with no recurrence of her chest pain. Patient is eager to go home. The wound able to perform any stress test over the weekend. I feel that patient is stable to be discharged with intensification of her antibiotic therapy. I have given her detailed instructions how to take sublingual nitroglycerin and what red flag signs to look for which she should come to the ER. d/c from cardio stand point sign off Past Medical History Past Medical History: Atrial Fibrillation, Eye Disorder, Fibromyalgia, GERD/Reflux, Hypertension, Osteoarthritis (OA), Thyroid Disorder Additional Past Medical History / Comment(s): Got J&J Vaccine. Blind in left eye, hiatal hernia, UTI's, hx ventricular tachycardia, spinal stenosis, spondylosis, hx right eye retinal tear-laser repair in office. Hx Malaria. "Liver attacks, when younger, lived in [place]." Chronic fatigue. "Have lots of trouble with left arm and shoulder". vertigo History of Any Multi-Drug Resistant Organisms: None Reported Past Surgical History: Appendectomy, Back Surgery, Cardiac Ablation, Cholecystectomy, Heart Catheterization, Hysterectomy, Orthopedic Surgery, Pacemaker, Tonsillectomy Additional Past Surgical History / Comment(s): Medtronic Pacemaker, left knee arthroscopy, right leg swelling drained, lower spine surgery, laminectomy and fusion, left eye surgery X2, Past Anesthesia/Blood Transfusion Reactions: Motion Sickness, Postoperative Nausea & Vomiting (PONV) Type of Cardiac Device: Permanent Pacemaker Device Placement Date:: 2011 Past Psychological History: No Psychological Hx Reported Smoking Status: Never smoker Past Alcohol Use History: Rare Past Drug Use History: None Reported - Past Family History Mother Family Medical History: Cancer Brother(s) Family Medical History: Cancer Sister(s) Family Medical History: Cancer Medications and Allergies Home Medications Medication Instructions Recorded Confirmed Type Nitroglycerin Sl Tabs [Nitrostat] 0.4 mg SL Q5M PRN 03/21/14 04/10/23 History Levothyroxine Sodium [Synthroid] 50 mcg PO DAILY@0630 03/17/20 04/10/23 History Warfarin [Coumadin] 2.5 mg PO SUMOTUWEFRSA@1800 06/09/20 04/10/23 History Amiodarone [Cordarone] 100 mg PO DAILY@72904/10/23 04/10/23 History Gabapentin [Neurontin] 100 mg PO BID@829,199904/10/23 04/10/23 History Isosorbide Mononitrate ER [Imdur] 15 mg PO DAILY #30 tab 04/10/23 Rx Metoprolol Tartrate [Lopressor] 100 mg PO BID 30 Days #60 tab 04/10/23 Rx nitrofurantoin macrocrystaL 50 mg PO DAILY@0830 04/10/23 04/10/23 History [Nitrofurantoin] Allergies Allergy/AdvReac Type Severity Reaction Status Date / Time doxycycline Allergy Severe Rash/Hives Verified 04/10/23 11:50 hydrocodone bitartrate Allergy Severe Itching Verified 04/10/23 11:50 [From Lortab] levofloxacin [From Levaquin] Allergy Severe Rash & Verified 04/10/23 11:50 joint pain adhesive tape Allergy Itching Verified 04/10/23 11:50 bacitracin [From Cortisporin] Allergy Itching Verified 04/10/23 11:50 bacitracin zinc Allergy Itching Verified 04/10/23 11:50 [From Cortisporin] cephalexin monohydrate Allergy Rash and Verified 04/10/23 11:50 [From Keflex] stomach problems ciprofloxacin Allergy Rash/Hives Verified 04/10/23 11:50 esomeprazole [From Nexium] Allergy blurred Verified 04/10/23 11:50 vision hydrocortisone Allergy Itching Verified 04/10/23 11:50 [From Cortisporin] iodine Allergy Unknown Verified 04/10/23 11:50 liotrix [From Thyrolar-1/4] Allergy Rapid Verified 04/10/23 11:50 Heart Rate, sob,severe back pain neomycin [From Cortisporin] Allergy Itching Verified 04/10/23 11:50 neomycin sulfate Allergy Itching Verified 04/10/23 11:50 [From Cortisporin] omeprazole Allergy facial Verified 04/10/23 11:50 swelling oxycodone HCl [From Percocet] Allergy sob,dizzy Verified 04/10/23 11:50 & drugged feeling polymyxin B Allergy Itching & Verified 04/10/23 11:50 swelling of the eyes tetracycline Allergy Pt told by Verified 04/10/23 11:50 Pharmacist never to take r/t other allergies tramadol HCl [From Ultram] Allergy Nausea & Verified 04/10/23 11:50 SOB clonidine AdvReac Severe extreme Verified 04/10/23 11:50 dizziness & faint erythromycin base AdvReac Severe nausea,diarrhea,vertigo,stomach Verified 04/10 11:50 problems indomethacin [From Indocin] AdvReac Severe Hallucinations,severe Verified 04/10/23 11:50 MYERS indomethacin sodium AdvReac Severe Hallucinations,severe Verified 04/10/23 11:50 [From Indocin] MYERS isosorbide AdvReac Severe severe Verified 04/10/23 11:50 headache,dizziness & diarrhea morphine AdvReac Severe Nausea & Verified 04/10/23 11:50 Vomiting naproxen [From Naprosyn] AdvReac Severe Severe Verified 04/10/23 11:50 Headache sulindac [From Clinoril] AdvReac Severe Nausea Verified 04/10/23 11:50 tolmetin sodium AdvReac Severe Nausea Verified 04/10/23 11:50 [From Tolectin] allopurinol AdvReac heart Verified 04/10/23 11:50 fluttering bupivacaine HCl AdvReac joint pain Verified 04/10/23 11:50 [From Marcaine] clarithromycin AdvReac Diarrhea Verified 04/10/23 11:50 codeine AdvReac Nausea Verified 04/10/23 11:50 dexamethasone AdvReac Severe Verified 04/10/23 11:50 headache & drugged feeling dexamethasone sod phosphate AdvReac Severe Verified 04/10/23 11:50 [From Decadron] headache & drugged feeling estradiol AdvReac Painful Verified 04/10/23 11:50 arms, spine & breasts gabapentin [From Neurontin] AdvReac "off Verified 04/10/23 11:50 balance" ibuprofen [From Motrin] AdvReac Rapid Verified 04/10/23 11:50 Heart Rate latex AdvReac Itching Verified 04/10/23 11:50 lisinopril AdvReac dizziness Verified 04/10/23 11:50 metoclopramide HCl AdvReac Nausea-Stomach Verified 04/10/23 11:50 [From Reglan] problems polymyxin B sulfate AdvReac Itching Verified 04/10/23 11:50 [From Cortisporin] pregabalin [From Lyrica] AdvReac Weight Verified 04/10/23 11:50 gain & blurry vision propafenone AdvReac severe Verified 04/10/23 11:50 diarrhea, itchy, shellfish derived AdvReac Joint and Verified 04/10/23 11:50 Body Pain spironolactone AdvReac Internal Verified 04/10/23 11:50 [From Aldactone] itching ,extreme dizziness sulfamethoxazole AdvReac Severe Verified 04/10/23 11:50 [From Bactrim] joint pain trimethoprim [From Bactrim] AdvReac Severe Verified 04/10/23 11:50 joint pain Hexadrol AdvReac Severe Uncoded 04/10/23 00:24 headache & drugged feeling spectro-abel AdvReac Frozen Uncoded 04/10/23 00:24 face for several days after Physical Exam Vitals: Vital Signs Temp Pulse Pulse Resp BP BP BP 04/10/23 14:05 98.0 F 60 16 133/74 04/10/23 07:30 97.5 F L 63 20 160/78 04/10/23 06:49 65 17 166/80 04/10/23 06:13 66 144/74 04/10/23 05:12 71 183/81 04/10/23 04:30 97.6 F 77 16 182/95 199/84 04/10/23 04:00 57 L 18 158/70 04/10/23 03:30 62 20 157/70 04/10/23 02:41 65 18 192/83 04/10/23 00:20 98.7 F 70 18 181/76 Pulse Ox 04/10/23 14:05 100 04/10/23 07:30 99 04/10/23 06:49 99 04/10/23 06:13 04/10/23 05:12 04/10/23 04:30 97 04/10/23 04:00 96 04/10/23 03:30 96 04/10/23 02:41 95 04/10/23 00:20 95 Intake and Output 04/10/23 04/10/23 04/10/23 06:59 14:59 22:59 Intake Total 118 Balance 118 Intake: Oral 118 Other: Voiding Method Toilet Diaper Incontinent # Voids 1 3 Weight 102.058 kg Results 04/10/23 01:12 04/10/23 01:12 Cardiac Enzymes 04/10/23 04/10/23 04/10/23 Range/Units 01:12 01:12 06:24 AST 36 (14-36) U/L Troponin I <0.012 <0.012 (0.000-0.034) ng/mL 04/10/23 Range/Units 11:22 AST (14-36) U/L Troponin I <0.012 (0.000-0.034) ng/mL Coagulation 04/10/23 Range/Units 01:12 PT 16.1 H (10.0-12.5) sec APTT 26.9 (22.0-30.0) sec CBC 04/10/23 Range/Units 01:12 WBC 10.1 (3.8-10.6) k/uL RBC 3.97 (3.80-5.40) m/uL Hgb 13.3 (11.4-16.0) gm/dL Hct 40.5 (34.0-46.0) % Plt Count 274 (150-450) k/uL Comprehensive Metabolic Panel 04/10/23 Range/Units 01:12 Sodium 137 (137-145) mmol/L Potassium 4.9 (3.5-5.1) mmol/L Chloride 104 (98-107) mmol/L Carbon Dioxide 25 (22-30) mmol/L BUN 16 (7-17) mg/dL Creatinine 0.88 (0.52-1.04) mg/dL Glucose 93 (74-99) mg/dL Calcium 9.1 (8.4-10.2) mg/dL AST 36 (14-36) U/L ALT 23 (4-34) U/L Alkaline Phosphatase 89 (38-126) U/L Total Protein 7.2 (6.3-8.2) g/dL Albumin 4.0 (3.5-5.0) g/dL Current Medications Generic Name Dose Route Start Last Admin Trade Name Freq PRN Reason Stop Dose Admin Acetaminophen 650 mg 04/10/23 09:33 Acetaminophen Tab 325 Mg Tab PO Q6HR PRN Mild Pain or Fever > 100.5 Hydrocodone Bitart/Acetaminophen 1 each 04/10/23 09:33 Hydrocodone/Apap 5-325mg 1 Each Tab PO Q4HR PRN Moderate Pain (Scale 4 to 6) Al Hydroxide/Mg Hydroxide 15 ml 04/10/23 09:33 Mag Hydrox/Al Hydrox/Simeth 30 Ml Cup PO Q6HR PRN Indigestion Melatonin 3 mg 04/10/23 09:33 Melatonin 3 Mg Tablet PO HS PRN Insomnia Naloxone HCl 0.2 mg 04/10/23 02:41 Naloxone 0.4 Mg/Ml 1 Ml Vial IV Q2M PRN Opioid Reversal Ondansetron HCl 4 mg 04/10/23 09:33 Ondansetron 4 Mg/2 Ml Vial IVP Q8HR PRN Nausea And Vomiting Intake and Output 04/10/23 04/10/23 04/10/23 06:59 14:59 22:59 Intake Total 118 Balance 118 Intake: Oral 118 Other: Voiding Method Toilet Diaper Incontinent # Voids 1 3 Weight 102.058 kg 04/10/23 01:12 04/10/23 01:12
[2023-04-10 23:06] LABS: Chol/HDL Ratio 2.89 Ratio; LDL Cholesterol,Calculated 87.5 mg/dL (0.0-131.0)
== END 2023-04-10 15:32 | disposition home or self-care (01) ==
LOC: EC 00:12 → 6NMEDSUR 02:41
PROVIDERS: ADMIT Hospitalist; ATTEND Hospitalist
DX: R07.2 Precordial pain (principal); I48.19 Other persistent atrial fibrillation; I49.5 Sick sinus syndrome; I47.19 Other supraventricular tachycardia; I10 Essential (primary) hypertension; R79.1 Abnormal coagulation profile; M79.7 Fibromyalgia; K21.9 Gastro-esophageal reflux disease without esophagitis; H54.62 Unqualified visual loss, left eye, normal vision right eye; K44.9 Diaphragmatic hernia without obstruction or gangrene; M48.00 Spinal stenosis, site unspecified; M47.9 Spondylosis, unspecified; R53.82 Chronic fatigue, unspecified; R11.0 Nausea; E66.9 Obesity, unspecified; Z68.35 Body mass index [BMI] 35.0-35.9, adult; Z79.01 Long term (current) use of anticoagulants; Z79.899 Other long term (current) drug therapy; Z79.890 Hormone replacement therapy; Z87.440 Personal history of urinary (tract) infections; Z95.0 Presence of cardiac pacemaker; Z88.4 Allergy status to anesthetic agent; Z88.1 Allergy status to other antibiotic agents; Z91.040 Latex allergy status; Z88.5 Allergy status to narcotic agent; Z91.013 Allergy to seafood; Z88.2 Allergy status to sulfonamides; Z88.8 Allergy status to other drugs, medicaments and biological substances; Z91.048 Other nonmedicinal substance allergy status; Z90.49 Acquired absence of other specified parts of digestive tract; Z86.13 Personal history of malaria; Z90.710 Acquired absence of both cervix and uterus; Z98.1 Arthrodesis status; Z98.890 Other specified postprocedural states; Z80.9 Family history of malignant neoplasm, unspecified
CPT/HCPCS: 99285; 36415; 93005; 80061; 80053; 84443; 83735; 84484; 85025; 85610; 85730; 83036; 71046; G0378

== ENCOUNTER 2023-05-04 17:13 | Emergency (ER) | payer MEDICARE, BC ==
--- NOTE | 2023-05-04 17:34 | ED ---
GI Bleed HPI - General Chief complaint: GI Bleed Stated complaint: Blood in stool Time Seen by Provider: 05/04/23 17:30 Source: patient, family, RN notes reviewed Mode of arrival: wheelchair Limitations: no limitations - History of Present Illness Initial comments: This is an 83-year-old female who presents to the emergency department for rectal bleeding. She felt like she needed to have a bowel movement this morning, and when she went to do so, she noticed several blood clots in the toilet. She is on Coumadin for A. fib, and contacted her primary care provider regarding the rectal bleeding. He advised she come to the emergency department for evaluation. She has had nausea and vomiting over the last couple of weeks, however she has not had any episodes of emesis in 2 days. She has also never had blood in her vomit or coffee-ground emesis. Denies any abdominal or rectal pain at this time and she has not had any additional rectal bleeding since this morning. - Related Data Home Medications Medication Instructions Recorded Confirmed Nitroglycerin Sl Tabs [Nitrostat] 0.4 mg SL Q5M PRN 03/21/14 04/10/23 Levothyroxine Sodium [Synthroid] 50 mcg PO DAILY@0630 03/17/20 04/10/23 Warfarin [Coumadin] 2.5 mg PO SUMOTUWEFRSA@1800 06/09/20 04/10/23 Amiodarone [Cordarone] 100 mg PO DAILY@0730 04/10/23 04/10/23 Gabapentin [Neurontin] 100 mg PO BID@04/10/23 04/10/23 nitrofurantoin macrocrystaL 50 mg PO DAILY@30 04/10/23 04/10/23 [Nitrofurantoin] Previous Rx's Medication Instructions Recorded Isosorbide Mononitrate ER [Imdur] 15 mg PO DAILY #30 tab 04/10/23 Metoprolol Tartrate [Lopressor] 100 mg PO BID 30 Days #60 tab 04/10/23 Allergies Allergy/AdvReac Type Severity Reaction Status Date / Time doxycycline Allergy Severe Rash/Hives Verified 04/10/23 11:50 hydrocodone bitartrate Allergy Severe Itching Verified 04/10/23 11:50 [From Lortab] levofloxacin [From Levaquin] Allergy Severe Rash & Verified 04/10/23 11:50 joint pain adhesive tape Allergy Itching Verified 04/10/23 11:50 bacitracin [From Cortisporin] Allergy Itching Verified 04/10/23 11:50 bacitracin zinc Allergy Itching Verified 04/10/23 11:50 [From Cortisporin] cephalexin monohydrate Allergy Rash and Verified 04/10/23 11:50 [From Keflex] stomach problems ciprofloxacin Allergy Rash/Hives Verified 04/10/23 11:50 esomeprazole [From Nexium] Allergy blurred Verified 04/10/23 11:50 vision hydrocortisone Allergy Itching Verified 04/10/23 11:50 [From Cortisporin] iodine Allergy Unknown Verified 04/10/23 11:50 liotrix [From Thyrolar-1/4] Allergy Rapid Verified 04/10/23 11:50 Heart Rate, sob,severe back pain neomycin [From Cortisporin] Allergy Itching Verified 04/10/23 11:50 neomycin sulfate Allergy Itching Verified 04/10/23 11:50 [From Cortisporin] omeprazole Allergy facial Verified 04/10/23 11:50 swelling oxycodone HCl [From Percocet] Allergy sob,dizzy Verified 04/10/23 11:50 & drugged feeling polymyxin B Allergy Itching & Verified 04/10/23 11:50 swelling of the eyes tetracycline Allergy Pt told by Verified 04/10/23 11:50 Pharmacist never to take r/t other allergies tramadol HCl [From Ultram] Allergy Nausea & Verified 04/10/23 11:50 SOB clonidine AdvReac Severe extreme Verified 04/10/23 11:50 dizziness & faint erythromycin base AdvReac Severe nausea,diarrhea,vertigo,stomach Verified 04/10/23 11:50 problems indomethacin [From Indocin] AdvReac Severe Hallucinations,severe Verified 04/10/23 11:50 MYERS indomethacin sodium AdvReac Severe Hallucinations,severe Verified 04/10/23 11:50 [From Indocin] MYERS isosorbide AdvReac Severe severe Verified 04/10/23 11:50 headache,dizziness & diarrhea morphine AdvReac Severe Nausea & Verified 04/10/23 11:50 Vomiting naproxen [From Naprosyn] AdvReac Severe Severe Verified 04/10/23 11:50 Headache sulindac [From Clinoril] AdvReac Severe Nausea Verified 04/10/23 11:50 tolmetin sodium AdvReac Severe Nausea Verified 04/10/23 11:50 [From Tolectin] allopurinol AdvReac heart Verified 04/10/23 11:50 fluttering bupivacaine HCl AdvReac joint pain Verified 04/10/23 11:50 [From Marcaine] clarithromycin AdvReac Diarrhea Verified 04/10/23 11:50 codeine AdvReac Nausea Verified 04/10/23 11:50 dexamethasone AdvReac Severe Verified 04/10/23 11:50 headache & drugged feeling dexamethasone sod phosphate AdvReac Severe Verified 04/10/23 11:50 [From Decadron] headache & drugged feeling estradiol AdvReac Painful Verified 04/10/23 11:50 arms, spine & breasts gabapentin [From Neurontin] AdvReac "off Verified 04/10/23 11:50 balance" ibuprofen [From Motrin] AdvReac Rapid Verified 04/10/23 11:50 Heart Rate latex AdvReac Itching Verified 04/10/23 11:50 lisinopril AdvReac dizziness Verified 04/10/23 11:50 metoclopramide HCl AdvReac Nausea-Stomach Verified 04/10/23 11:50 [From Reglan] problems polymyxin B sulfate AdvReac Itching Verified 04/10/23 11:50 [From Cortisporin] pregabalin [From Lyrica] AdvReac Weight Verified 04/10/23 11:50 gain & blurry vision propafenone AdvReac severe Verified 04/10/23 11:50 diarrhea, itchy, shellfish derived AdvReac Joint and Verified 04/10/23 11:50 Body Pain spironolactone AdvReac Internal Verified 04/10/23 11:50 [From Aldactone] itching ,extreme dizziness sulfamethoxazole AdvReac Severe Verified 04/10/23 11:50 [From Bactrim] joint pain trimethoprim [From Bactrim] AdvReac Severe Verified 04/10/23 11:50 joint pain Hexadrol AdvReac Severe Uncoded 04/10/23 00:24 headache & drugged feeling spectro-abel AdvReac Frozen Uncoded 04/10/23 00:24 face for several days after Review of Systems ROS Statement: Those systems with pertinent positive or pertinent negative responses have been documented in the HPI. ROS Other: All systems not noted in ROS Statement are negative. Past Medical History Past Medical History: Atrial Fibrillation, Eye Disorder, Fibromyalgia, GERD/Reflux, Hypertension, Osteoarthritis (OA), Thyroid Disorder Additional Past Medical History / Comment(s): Got J&J Vaccine. Blind in left eye, hiatal hernia, UTI's, hx ventricular tachycardia, spinal stenosis, spondylosis, hx right eye retinal tear-laser repair in office. Hx Malaria. "Liver attacks, when younger, lived in [place] Chronic fatigue. "Have lots of trouble with left arm and shoulder". vertigo History of Any Multi-Drug Resistant Organisms: None Reported Past Surgical History: Appendectomy, Back Surgery, Cardiac Ablation, Cholecystectomy, Heart Catheterization, Hysterectomy, Orthopedic Surgery, Pacemaker, Tonsillectomy Additional Past Surgical History / Comment(s): Medtronic Pacemaker, left knee arthroscopy, right leg swelling drained, lower spine surgery, laminectomy and fusion, left eye surgery X2, Past Anesthesia/Blood Transfusion Reactions: Motion Sickness, Postoperative Nausea & Vomiting (PONV) Type of Cardiac Device: Permanent Pacemaker Device Placement Date:: 2011 Past Psychological History: No Psychological Hx Reported Smoking Status: Never smoker Past Alcohol Use History: Rare Past Drug Use History: None Reported - Past Family History Mother Family Medical History: Cancer Brother(s) Family Medical History: Cancer Sister(s) Family Medical History: Cancer General Exam - General Exam Comments Initial Comments: Visual Physical Exam Vital signs reviewed General: Well-appearing, nontoxic, no acute distress. Head: Normocephalic, atraumatic Eyes: PERRLA, EOMI ENT: Airway patent Chest: Nonlabored breathing Skin: No visual rash, normal skin tone Neuro: Alert and oriented 3 Musculoskeletal: No gross abnormalities Limitations: no limitations General appearance: alert, in no apparent distress Head exam: Present: atraumatic, normocephalic, normal inspection Respiratory exam: Present: normal lung sounds bilaterally. Absent: respiratory distress, wheezes, rales, rhonchi, stridor Cardiovascular Exam: Present: regular rate, normal rhythm, normal heart sounds. Absent: systolic murmur, diastolic murmur, rubs, gallop, clicks GI/Abdominal exam: Present: soft, normal bowel sounds. Absent: distended, tenderness, guarding, rebound, rigid Neurological exam: Present: alert, oriented X3, CN II-XII intact Psychiatric exam: Present: normal affect, normal mood Skin exam: Present: warm, dry, intact, normal color. Absent: rash Course Vital Signs 05/04/23 05/04/23 05/05/23 17:23 23:23 00:40 Temperature 97.9 F 97.7 F 97.8 F Pulse Rate 75 71 65 Respiratory 16 18 18 Rate Blood Pressure 147/77 174/85 O2 Sat by Pulse 96 95 97 Oximetry Medical Decision Making - Medical Decision Making This is an 83-year-old female who presents to the emergency department for rectal bleeding. Was pt. sent in by a medical professional or institution? @ -No Did you speak to anyone other than the patient for history? @ -No Did you review nursing and triage notes? @ -Yes, and I agree, it is accurate with regards to the patient's symptoms. Were old charts reviewed? @ -No Differential Diagnosis? @ -Differential GI Bleed: Esophageal varices, aortoenteric fistula, Wendy-Case, gastritis, peptic ulcer disease, diverticulosis, inflammatory bowel disease, hemorrhoids, fissure, colitis, malignancy, Meckels diverticulum, this is not meant to be an all- inclusive list. EKG interpreted by me (3pts min.)? @ -Not obtained X-rays interpreted by me (1pt min.)? @ -Not obtained CT interpreted by me (1pt min.)? @ -CT of the abdomen and pelvis obtained. My interpretation identifies no evidence of bowel wall thickening or free air. U/S interpreted by me (1pt. min.)? @ -Not obtained What testing was considered but not performed? (CT, X-rays, U/S, labs)? Why? @ -None What meds were considered but not given? Why? @ -None Did you discuss the management of the patient with other professionals? @ -No Did you reconcile home meds? @ -No Was smoking cessation discussed for >3mins.? @ -No Was critical care preformed (if so, how long)? @ -No Were there social determinants of health that impacted care today? How? (Homelessness, low income, unemployed, alcoholism, drug addiction, transportation, low edu. Level, literacy, decrease access to med. care, intermediate, rehab)? @ -No Was there de-escalation of care discussed even if they declined? (Discuss DNR or withdrawal of care, Hospice)? @ -No What co-morbidities impacted this encounter? (DM, HTN, Smoking, COPD, CAD, Cancer, CVA, Hep., AIDS, mental health diagnosis, sleep apnea, morbid obesity)? @ -A-fib Was patient admitted / discharged? @ -Discharged. Lab work obtained demonstrating leukocytosis and was otherwise unremarkable. Hemoglobin WNL at 14.6. Patient did not have active rectal bleeding while in the emergency department and she remained asymptomatic. CT scan of the abdomen and pelvis was obtained, however there were delays in radiology interpretations and the patient did not wish to wait for the results prior to discharge. Given that she had no active bleeding and her hemoglobin was within normal limits, I was agreeable to this. However, she was made aware of the risks of leaving before computed tomography scan results returned and she expresses understanding. We will follow up on the computed tomography scan results and contact the patient's family with any concerning findings. Review of CT scan results demonstrates no acute process, including no extravasation of contrast into the GI tract. Undiagnosed new problem with uncertain prognosis? @ -None Drug Therapy requiring intensive monitoring for toxicity (Heparin, Nitro, Insulin, Cardizem)? @ -None Were any procedures done? @ -None Diagnosis/symptom? @ -Rectal bleeding Acute, or Chronic, or Acute on Chronic? @ -Acute Uncomplicated (without systemic symptoms) or Complicated (systemic symptoms)? @ -Uncomplicated Side effects of treatment? @ -None Exacerbation, Progression, or Severe Exacerbation] @ -Not applicable Poses a threat to life or bodily function? @ -No Return precautions reviewed in depth, the patient is instructed to return to the emergency department with any new, worsening, or concerning symptoms. Patient verbalized understanding. This case was discussed in detail with the attending ED physician, Dr. Monte. Presentation, findings, and treatment plan discussed in detail as well. - Lab Data Result diagrams: 05/04/23 17:38 05/04/23 20:05 Lab Results 05/04/23 05/04/23 05/04/23 Range/Units 17:35 17:38 17:38 WBC 11.7 H (3.8-10.6) k/uL RBC 4.34 (3.80-5.40) m/uL Hgb 14.6 (11.4-16.0) gm/dL Hct 44.4 (34.0-46.0) % MCV 102.5 H (80.0-100.0) fL MCH 33.7 (25.0-35.0) pg MCHC 32.9 (31.0-37.0) g/dL RDW 13.7 (11.5-15.5) % Plt Count 280 (150-450) k/uL MPV 7.2 Neutrophils % 63 % Lymphocytes % 27 % Monocytes % 5 % Eosinophils % 3 % Basophils % 0 % Neutrophils # 7.3 (1.3-7.7) k/uL Lymphocytes # 3.1 (1.0-4.8) k/uL Monocytes # 0.5 (0-1.0) k/uL Eosinophils # 0.3 (0-0.7) k/uL Basophils # 0.0 (0-0.2) k/uL Macrocytosis Slight PT 19.0 H (10.0-12.5) sec INR 1.9 H (<1.2) APTT 31.0 H (22.0-30.0) sec Sodium (137-145) mmol/L Potassium (3.5-5.1) mmol/L Chloride (98-107) mmol/L Carbon Dioxide (22-30) mmol/L Anion Gap mmol/L BUN (7-17) mg/dL Creatinine (0.52-1.04) mg/dL Est GFR (CKD-EPI)AfAm (>60 ml/min/1.73 sqM) Est GFR (CKD-EPI)NonAf (>60 ml/min/1.73 sqM) Glucose (74-99) mg/dL Plasma Lactic Acid Cayden (0.7-2.0) mmol/L Calcium (8.4-10.2) mg/dL Total Bilirubin (0.2-1.3) mg/dL AST (14-36) U/L ALT (4-34) U/L Alkaline Phosphatase (38-126) U/L Total Protein (6.3-8.2) g/dL Albumin (3.5-5.0) g/dL Blood Type Not Reportable Blood Type Recheck Bld Type Recheck Status Antibody Screen Not Reportable Spec Expiration Date 05/07/2023 - 233405/04/23 05/04/23 Range/Units 17:38 20:05 WBC (3.8-10.6) k/uL RBC (3.80-5.40) m/uL Hgb (11.4-16.0) gm/dL Hct (34.0-46.0) % MCV (80.0-100.0) fL MCH (25.0-35.0) pg MCHC (31.0-37.0) g/dL RDW (11.5-15.5) % Plt Count (150-450) k/uL MPV Neutrophils % % Lymphocytes % % Monocytes % % Eosinophils % % Basophils % % Neutrophils # (1.3-7.7) k/uL Lymphocytes # (1.0-4.8) k/uL Monocytes # (0-1.0) k/uL Eosinophils # (0-0.7) k/uL Basophils # (0-0.2) k/uL Macrocytosis PT (10.0-12.5) sec INR (<1.2) APTT (22.0-30.0) sec Sodium 139 (137-145) mmol/L Potassium 4.4 (3.5-5.1) mmol/L Chloride 105 (98-107) mmol/L Carbon Dioxide 26 (22-30) mmol/L Anion Gap 8 mmol/L BUN 21 H (7-17) mg/dL Creatinine 0.81 (0.52-1.04) mg/dL Est GFR (CKD-EPI)AfAm 77 (>60 ml/min/1.73 sqM) Est GFR (CKD-EPI)NonAf 67 (>60 ml/min/1.73 sqM) Glucose 112 H (74-99) mg/dL Plasma Lactic Acid Cayden 0.9 (0.7-2.0) mmol/L Calcium 8.9 (8.4-10.2) mg/dL Total Bilirubin 0.8 (0.2-1.3) mg/dL AST 34 (14-36) U/L ALT 23 (4-34) U/L Alkaline Phosphatase 80 (38-126) U/L Total Protein 7.7 (6.3-8.2) g/dL Albumin 4.4 (3.5-5.0) g/dL Blood Type Blood Type Recheck Bld Type Recheck Status Antibody Screen Spec Expiration Date - Radiology Data Radiology results: report reviewed, image reviewed Disposition Clinical Impression: Rectal bleeding Disposition: HOME SELF-CARE Instructions (If sedation given, give patient instructions): Gastrointestinal Bleeding (ED) Additional Instructions: Return to the emergency department with any new, worsening, or concerning symptoms. Contact the product designer as listed below for a follow up appointment and reevaluation of rectal bleeding. Follow up with your primary care provider in 1-2 days. Is patient prescribed a controlled substance at d/c from ED?: No Referrals: Gregorio Serrano MD [Primary Care Provider] - 1-2 days Betty Ross MD [STAFF PHYSICIAN] - 1-2 days Time of Disposition: 12:35
[2023-05-04 18:08] LABS: Basophils % (A) 0 %; Eosinophils # (A) 0.3 k/uL (0-0.7); Eosinophils % (A) 3 %; HCT 44.4 % (34.0-46.0); HGB 14.6 gm/dL (11.4-16.0); Lymphocytes # (A) 3.1 k/uL (1.0-4.8); Lymphocytes % (A) 27 %; MCH 33.7 pg (25.0-35.0); MCHC 32.9 g/dL (31.0-37.0); MCV 102.5 fL (80.0-100.0); Macrocytosis Slight; Mean Platelet Volume 7.2; Monocytes # (A) 0.5 k/uL (0-1.0); Monocytes % (A) 5 %; Neutrophils # (A) 7.3 k/uL (1.3-7.7); Neutrophils % (A) 63 %; Platelet Count 280 k/uL (150-450); RBC 4.34 m/uL (3.80-5.40); RDW 13.7 % (11.5-15.5); WBC 11.7 k/uL (3.8-10.6)
[2023-05-04 18:18] LABS: INR 1.9 (<1.2)
[2023-05-04 20:38] LABS: ALT 23 U/L (4-34); AST 34 U/L (14-36); African American GFR (CKD) 77 (>60 ml/min/1.73 sqM); Albumin 4.4 g/dL (3.5-5.0); Alkaline Phosphatase 80 U/L (38-126); Anion Gap 8 mmol/L; Blood Urea Nitrogen 21 mg/dL (7-17); Calcium 8.9 mg/dL (8.4-10.2); Carbon Dioxide 26 mmol/L (22-30); Chloride 105 mmol/L (98-107); Glucose 112 mg/dL (74-99); Non-African American GFR(CKD) 67 (>60 ml/min/1.73 sqM); Potassium 4.4 mmol/L (3.5-5.1); Sodium 139 mmol/L (137-145); Total Bilirubin 0.8 mg/dL (0.2-1.3); Total Protein 7.7 g/dL (6.3-8.2)
[2023-05-04] MEDS ORDERED: methylPREDNISolone SOD SUCCI 125 MG/2 ML VIAL IV STA (20:47)
[2023-05-04] MEDS ORDERED: diphenhydrAMINE 50 MG/ML 1 ML VIAL IVP STA (20:47)
[2023-05-04] MEDS ORDERED: FAMOTIDINE 20 MG/2 ML VIAL IV STA (20:47)
[2023-05-04 23:40] VITALS: RESP 18
--- NOTE | 2023-05-05 01:05 | CT ---
EXAM: CT Angiography Abdomen and Pelvis Without and With Intravenous Contrast CLINICAL HISTORY: ITS.REASON CT Reason: GI bleed TECHNIQUE: Axial computed tomographic angiography images of the abdomen and pelvis without and with intravenous contrast. CTDI is 38.3 mGy and DLP is 5031. 6 mGy-cm. This CT exam was performed using one or more of the following dose reduction techniques: automated exposure control, adjustment of the mA and/or kV according to patient size, and/or use of iterative reconstruction technique. MIP reconstructed images were created and reviewed. COMPARISON: No relevant prior studies available. FINDINGS: VASCULATURE: Aorta: Moderate atherosclerotic disease of the infrarenal abdominal aorta without aneurysmal dilatation or hemodynamically significant stenosis. No dissection. Celiac trunk and mesenteric arteries: No acute findings. No occlusion or significant stenosis. Renal arteries: Moderate ostial stenosis of the single left renal artery causing less than 30% stenosis. Moderate ostial stenosis of the single right renal artery causing 50% stenosis. Iliac arteries: No acute findings. No occlusion or significant stenosis. Lung bases: Lungs demonstrate bilateral dependent atelectasis. ABDOMEN: Liver: Unremarkable. No mass. Gallbladder and bile ducts: Gallbladder has been removed. No ductal dilation. Pancreas: Unremarkable. No ductal dilation. No mass. Spleen: Unremarkable. No splenomegaly. Adrenals: Unremarkable. No mass. Kidneys and ureters: Unremarkable. No obstructing stones. No hydronephrosis. No solid mass. Stomach and bowel: Unremarkable. No obstruction. No mucosal thickening. No active extravasation into the GI tract. PELVIS: Appendix: No findings to suggest acute appendicitis. Bladder: Unremarkable. No stones. No mass. Reproductive: Uterus has been removed. ABDOMEN and PELVIS: Intraperitoneal space: Unremarkable. No significant fluid collection. No free air. Bones/joints: No acute fracture. No dislocation. Soft tissues: Unremarkable. Lymph nodes: Unremarkable. No enlarged lymph nodes. IMPRESSION: No active extravasation into the GI tract.
[2023-05-05 01:10] VITALS: BP 174/85; PULSE 65; TEMP 97.8
== END 2023-05-05 00:57 | disposition home or self-care (01) ==
LOC: EC 17:13
DX: K62.5 Hemorrhage of anus and rectum (principal); I48.91 Unspecified atrial fibrillation; I10 Essential (primary) hypertension; E07.9 Disorder of thyroid, unspecified; M19.90 Unspecified osteoarthritis, unspecified site; Z79.01 Long term (current) use of anticoagulants; Z79.890 Hormone replacement therapy; Z79.899 Other long term (current) drug therapy; Z79.1 Long term (current) use of non-steroidal anti-inflammatories (NSAID); Z91.09 Other allergy status, other than to drugs and biological substances; Z88.6 Allergy status to analgesic agent; Z88.1 Allergy status to other antibiotic agents; Z91.040 Latex allergy status; Z88.8 Allergy status to other drugs, medicaments and biological substances; Z88.2 Allergy status to sulfonamides; Z91.013 Allergy to seafood; Z88.5 Allergy status to narcotic agent
CPT/HCPCS: 36415; 86900; 86901; 80053; 83605; 85025; 85610; 85730; 86850; 74174; 99285; 96374; 96375 ×2; J1200; J2930; J3490; Q9967

== ENCOUNTER → 2023-10-18 | Outpatient (CLI) | payer MEDICARE, BC | LOC: CPPFTMAIN 11:02 | PROVIDERS: ATTEND Internal Medicine Clinical Cardiac Electrophysiology | DX: T46.2X1A Poisoning by other antidysrhythmic drugs, accidental (unintentional), initial encounter (principal); Z88.1 Allergy status to other antibiotic agents; Z88.5 Allergy status to narcotic agent; Z91.048 Other nonmedicinal substance allergy status; Z88.8 Allergy status to other drugs, medicaments and biological substances; Z91.040 Latex allergy status; Z91.013 Allergy to seafood; Z88.2 Allergy status to sulfonamides; Z88.6 Allergy status to analgesic agent | CPT/HCPCS: 94060; 94726; 94729 ==

== ENCOUNTER → 2024-04-18 | Outpatient (CLI) | payer MEDICARE, BC ==
--- NOTE | 2024-04-18 15:16 | BD ---
EXAMINATION TYPE: Axial Bone Density DATE OF EXAM: 04/18/2024 CLINICAL HISTORY: 84 years old Female. ICD-10 CODE: Z78.0 POST CAT , Additional History: Height: 5 ft 6 in Weight: 216 FRAX RISK QUESTIONS: Alcohol (3 or more units per day): no Family History (Parent hip fracture): no Glucocorticoids (More than 3mos): injections (Ex: prednisone, prednisolone, methylprednisolone, dexamethasone, and hydrocortisone). History of Fracture in Adulthood: no Secondary Osteoporosis: 1. Type 1 Diabetes: no 2. Hyperthyroidism: no 3. Menopause before 45: yes 4. Malnutrition: no 5. Chronic liver disease: no Rheumatoid Arthritis: yes Current Tobacco Use: no RISK FACTORS HISTORY OF: Surgery to Spine/Hip(right/left)/Wrist (right/left): lumbar surg/ When: 2008 MEDICATIONS: Thyroid Medications: yes Which medication: levothyroxine How Lon years Osteoporosis Medications: none EXAM MEASUREMENTS: Bone mineral density about the R hip (g/cm2): 0.773 Bone mineral density about the L hip (g/cm2): 0.712 T Score values are as follows: -----R Neck: -1.9 -----L Neck: -2.3 -----R Total: -1.6 -----L Total: -1.8 Z Score values are as follows: -----R Neck: -0.2 -----L Neck: -0.6 -----R Total: 0.0 -----L Total: -0.3 prev done [facility] Bone mineral density about the L Wrist (g/cm2): 0.504 T Score values are as follows: -----Dist. R+U: -1.4 -----Prox. R+U: -2.5 -----Radius total: -2.8 Z Score values are as follows: -----Dist. R+U: 1.9 -----Prox. R+U: 0.8 -----Radius total: 0.5 prev done [facility] no frax because of pts age IMPRESSION: Osteoporosis (T Score less than -2.5). There is increased fracture risk and therapy is usually indicated based on age. Re-Screen 1-2 years. NOTE: T-SCORE=SD OF THE YOUNG ADULT MEAN. [facility], , 04/18/2024 3:14 PM
== END | disposition home or self-care (01) ==
LOC: RADBDWWP 13:37
PROVIDERS: ATTEND Family Medicine
DX: Z78.0 Asymptomatic menopausal state (principal); M81.0 Age-related osteoporosis without current pathological fracture
CPT/HCPCS: 77080

== ENCOUNTER → 2024-08-29 | Day surgery (SDC) | payer MEDICARE, BC ==
[~2024-08-29] MED LIST changes: +ALPRAZolam 0.25 MG TAB PO PRN; +ALPRAZolam 0.5 MG TAB PO PRN; +HEPARIN SODIUM,PORCINE (1 ML) 2,500 UNIT in SODIUM CHLORIDE 0.9% 250 ML IRRIGATION PRN; +HEPARIN SODIUM,PORCINE 10,000 UNIT in SODIUM CHLORIDE 0.9% 1,000 ML IRRIGATION PRN; -LACTATED RINGERS 1,000 ML IV SCH; +RX INFO: IV CONTRAST WAS GIVEN 1 EACH MISC MISCELLANE PRN
[2024-08-29] MEDS: IV FLUID CONTINUATION 1,000 ML IV ONE (10:15)
[2024-08-29] MEDS: SODIUM CHLORIDE 0.9% 1,000 ML in EMPTY BAG 1 BAG IV SCH (10:34)
[2024-08-29] MEDS: ASPIRIN 325 MG TAB PO STA (10:34)
[2024-08-29 10:37] VITALS: RESP 16; TEMP 97.9
[2024-08-29 10:43] LABS: Basophils # (A) 0.04 10*3/uL (0.00-0.10); Basophils % (A) 0.6 %; Eosinophils # (A) 0.17 10*3/uL (0.04-0.35); Eosinophils % (A) 2.5 %; HCT 40.1 % (37.2-46.3); Lymphocytes # (A) 1.81 10*3/uL (0.90-5.00); Lymphocytes % (A) 26.7 %; MCH 35.4 pg (27.0-32.0); MCHC 34.9 g/dL (32.0-37.0); MCV 101.5 fL (80.0-97.0); Mean Platelet Volume 8.3 fL (9.5-12.2); Monocytes % (A) 8.9 %; Neutrophils # (A) 4.12 10*3/uL (1.80-7.70); Neutrophils % (A) 60.9 %; Platelet Count 293 10*3/uL (140-440); RBC 3.95 10*6/uL (4.10-5.20); RDW 13.6 % (11.5-14.5); WBC 6.77 10*3/uL (4.50-10.00)
[2024-08-29 10:54] LABS: INR 1.4 (<1.2); Prothrombin Time 14.4 sec (10.0-12.5)
[2024-08-29 10:57] LABS: African American GFR (CKD) 74 (>60 ml/min/1.73 sqM); Anion Gap 10 mmol/L; Blood Urea Nitrogen 16 mg/dL (7-17); Calcium 9.4 mg/dL (8.4-10.2); Carbon Dioxide 29 mmol/L (22-30); Chloride 98 mmol/L (98-107); Glucose 90 mg/dL (74-99); Non-African American GFR(CKD) 64 (>60 ml/min/1.73 sqM); Potassium 4.3 mmol/L (3.5-5.1); Sodium 137 mmol/L (137-145)
[2024-08-29] MEDS: MIDAZOLAM 2 MG/2 ML VIAL IVP ONE (12:00)
[2024-08-29] MEDS: fentaNYL (PF) 50 MCG/1 ML VIAL IVP ONE (12:00)
[2024-08-29] MEDS: LIDOCAINE 1% INJ 10MG/ML (20 ML MDV) SQ ONE (12:03)
[2024-08-29] MEDS: VERAPAMIL SYRINGE (5 MG/10 ML) INTRAARTER ONE (12:06)
[2024-08-29] MEDS: HEPARIN SODIUM 1,000 UN/ML (10ML VL) IVP ONE ×2 (12:06)
[2024-08-29] MEDS: IOPAMIDOL-370 100ML BTL INJ ONE (12:17)
--- NOTE | 2024-08-29 12:23 | P.CARDCATH ---
Date of Procedure: 08/29/24 Description of Procedure: DIAGNOSTIC CORONARY ANGIOGRAPHY and LEFT HEART CATH REPORT PROCEDURES PERFORMED: Left heart catheterization Selective coronary angiography Moderate conscious sedation 12 mins [Ultrasound assisted] Right radial access INDICATION: Unstable angina, recurrent substernal chest pressure not responding to medical management with max tolerated antianginal therapy. CONSENT: I have explained the procedural steps of above-mentioned procedures in layman's terms to the patient. I discussed the risks (including but not limited to stroke, emergent vascular or cardiac surgery or ), benefits and alternative therapies for the above-mentioned procedure. I discussed the risks of sedation/analgesia and blood product administration (if indicated). The patient has indicated understanding and acceptance of these risks. Conscious Sedation: Patient's ECG, heart rate, blood pressure, pulse oximetry were monitored throughout the duration of procedure under my direct supervision. 1 mg Versed and [50] mcg Fentanyl were used for induction of moderate conscious sedation. Total duration of moderate concious sedation 12 minutes. PROCEDURAL DETAILS: Patient was prepped and draped in sterile fashion. 1% lidocaine was infiltrated over the right radial artery. Right radial access was obtained via modified seldinger technique. [Ultrasound was used for radial access]. Medications: 5mg of verapamil was administed in the radial sheet. 6000 units of Heparin was administed once the catheter reached the aortic root Wires and Catheter used: J wire was advanced under fluroscopy to get to aortic root. 5 australian JR 4 diagnostic catheter was utilized obtain left ventricular pressure and pressure gradint across aortic valve. 5 australian JR 4 diagnostic catheter was used to selectively engage the right coronary ostium. 5 australian JL 3.5 diagnostic catheter was utilized to selectively engage the left coronary ostium. Angiographic images were reviewed in detail. Catheter and wire were removed. Radial sheet was flushed. The right radial sheath was removed and a TR band was placed. Patent hemostasis was achieved. The patient tolerated the procedure well. Patient was transported back to the post catheterization holding area in stable condition. TECHNICAL DETAILS Total radiation: 159 mGy Total fluro time: 2.4 minutes Total contrast used: Isovue 50 mL Complications: [none] Estimated Blood loss: less than 15 ml HEMODYNAMICS: Aortic Pressure: 140/70 mmHg. LV pressure: 142/5 mmHg. LVEDP 8 mmHg. There was no significant gradient across the aortic valve. SELECTIVE CORONARY ARTERIOGRAPHY: LEFT MAIN: The left main is short and large caliber vessel. It bifurcates into the LAD and circumflex. Left main appears angiographically normal. LEFT ANTERIOR DESCENDING CORONARY ARTERY: LAD is large caliber reaches up to the apex. LAD appears angiographically patent. It gives rise to a medium size diagonal 1 and a diagonal 2 branch which appears angiographically patent. LEFT CIRCUMFLEX CORONARY ARTERY: It is nondominant vessel. Left circumflex is a moderate caliber vessel. It appears angiographically normal. It gives rise to 2 OM branches which appears angiographically patent. RIGHT CORONARY ARTERY: Dominant vessel. The right coronary artery is a large caliber vessel. Proximal and mid RCA is mild to moderate irregularities. RCA is otherwise angiographically patent. Distally RCA gives rise to PDA and PL branches appears angiographically patent. IMPRESSION: Angiographically patent coronary arteries with minimal luminal irregularities Normal LVEDP PLAN: Aggressive risk factor modification per most recent ACC/AHA guidelines. 125 cc fluids for 4 hours Discharge home in 4 hours Follow-up in the office in 1-[address] High Performing Physician Da Ramon MD, FACC, RPVI Thank you for allowing [facility] to participate in this patient's care. Feel free to reach out in case of any followup questions.
[2024-08-29 16:40] VITALS: BP 134/66; PULSE 48
== END ==
LOC: CATHCVL 09:56
PROVIDERS: ATTEND Student in an Organized Health Care Education/Training Program
DX: I48.0 Paroxysmal atrial fibrillation (principal); I10 Essential (primary) hypertension; Z79.899 Other long term (current) drug therapy; Z88.6 Allergy status to analgesic agent; Z88.5 Allergy status to narcotic agent; Z88.8 Allergy status to other drugs, medicaments and biological substances; Z79.01 Long term (current) use of anticoagulants
CPT/HCPCS: 93458; 80048; 85025; 85610; 99152; C1769 ×2; C1894; J2250; J2003; J1644; Q9967; J3010